=== PATIENT | female | born 1970 | race Caucasian/White ===

== ENCOUNTER 2017-02-19 15:10 | Outpatient (RCR) | payer BC ==
[2017-02-10] MEDS: IRON SUCROSE 200 MG/10 ML (VENOFER) VIAL IV SCH (17:28)
[2017-02-10 17:34] VITALS: BP 139/86
[2017-02-12] MEDS: IRON SUCROSE 200 MG/10 ML (VENOFER) VIAL IV SCH (15:07)
[2017-02-12 15:54] VITALS: BP 131/81
[2017-02-15] MEDS: diphenhydrAMINE 50 MG/ML INJ (BENADRYL) IV SCH (15:17)
[2017-02-15 15:19] VITALS: BP 126/74
[2017-02-15] MEDS: IRON SUCROSE 200 MG/10 ML (VENOFER) VIAL IV SCH (15:19)
[2017-02-17 15:15] VITALS: BP 129/82
[2017-02-17] MEDS: diphenhydrAMINE 50 MG/ML INJ (BENADRYL) IV SCH (15:28)
[2017-02-17] MEDS: IRON SUCROSE 200 MG/NS 100 ML (IVPB) IV SCH ×2 (15:45)
[~2017-02-19] VITALS: Ht 168.9 cm; Wt 152.4 kg
[~2017-02-19 15:10] MED LIST: IRON SUCROSE 200 MG/10 ML (VENOFER) VIAL IV ONE; NS (IVPB) 100 ML ONE; diphenhydrAMINE 50 MG/ML INJ (BENADRYL) IV SCH; diphenhydrAMINE 50 MG/ML INJ (BENADRYL) ONE
[2017-02-19] MEDS: diphenhydrAMINE 50 MG/ML INJ (BENADRYL) IV SCH (15:10)
[2017-02-19] MEDS: IRON SUCROSE 200 MG/NS 100 ML (IVPB) IV SCH ×2 (15:11)
[2017-02-19 15:15] VITALS: BP 146/91
[2017-02-19 15:49] VITALS: BP 146/91
== END 2017-05-11 | disposition home or self-care (01) ==
LOC: SDC 15:10
DX: D50.9 Iron deficiency anemia, unspecified (principal)
CPT/HCPCS: 96365; 96375

== ENCOUNTER → 2017-06-17 | Outpatient (CLI) | payer BC ==
--- NOTE | 2017-06-17 11:31 | Diagnostic Imaging Report ---
PROCEDURE: US Thyroid. TECHNIQUE: Multiple real-time grayscale images were obtained of the thyroid in various projections. INDICATION: Thyromegaly and abnormal thyroid labs. FINDINGS: The right lobe of the thyroid measures 5.1 x 1.6 x 1.3 cm and the left lobe measures 4.2 x 1.0 x 2.0 cm. There are two hypoechoic nodules within the right lobe. Largest is in the upper pole measuring 9 mm x 6 mm x 8 mm. The second nodule is 3 mm in size in the lower pole. Left lobe is unremarkable and shows homogeneous echotexture. IMPRESSION: Subcentimeter right lobe thyroid nodules. Followup ultrasound in six months could be performed to confirm stability. Dictated by: Dictated on workstation # [id number]
== END ==
LOC: RAD 10:35
PROVIDERS: ATTEND Nurse Practitioner Family
DX: E04.2 Nontoxic multinodular goiter (principal)
CPT/HCPCS: 76536

== ENCOUNTER → 2017-07-07 | Outpatient (CLI) | payer BC ==
[~2017-07-07] MED LIST changes: +IOHEXOL 350 MG/ML 100 ML (OMNIPAQUE 350) VIAL IV ONE; -IRON SUCROSE 200 MG/10 ML (VENOFER) VIAL IV ONE; -NS (IVPB) 100 ML ONE; +NS 250 ML (IVPB) BAG IV ONE; -diphenhydrAMINE 50 MG/ML INJ (BENADRYL) IV SCH; -diphenhydrAMINE 50 MG/ML INJ (BENADRYL) ONE
--- NOTE | 2017-07-07 18:32 | Diagnostic Imaging Report ---
PROCEDURE: CT neck soft tissue with contrast. TECHNIQUE: Multiple contiguous axial images were obtained through the neck after the administration of contrast. INDICATION: Neck mass. Fatigue. Not feeling well. Possible parathyroid. COMPARISON: Thyroid ultrasound from 06/17/2017. FINDINGS: There is streak artifact across the lower soft tissues of the neck due to body habitus. The visualized portions of the nasopharynx, oropharynx, and the hypopharynx are clear. There is mild prominence of the pharyngeal tonsils, without fluid collection or significant enlargement. There is no airway compromise. No pathologically enlarged cervical lymph nodes are seen. No masses or fluid collections are identified in the neck. The deep spaces of the neck are unremarkable. There is no abnormal enhancement. The parotid, and submandibular glands are unremarkable. The thyroid lobes are mildly prominent, but no discrete masses are seen. The visualized portions of the intracranial structures demonstrate no acute abnormalities. The paranasal sinuses and orbits are unremarkable. The visualized portion of the lung apices and mediastinum are unremarkable. Osseous structures demonstrate no acute abnormality, although there is loss of the cervical lordosis. IMPRESSION: 1. No masses or fluid collections seen in the soft tissues of the neck. Dictated by: Dictated on workstation # [id number]
== END ==
LOC: RAD 17:34
PROVIDERS: ATTEND Nurse Practitioner Family
DX: R22.1 Localized swelling, mass and lump, neck (principal); E21.3 Hyperparathyroidism, unspecified; R53.83 Other fatigue
CPT/HCPCS: 70491

== ENCOUNTER 2018-06-22 10:34 | Outpatient (CLI) | payer BC ==
[~2018-06-22] VITALS: Ht 168.9 cm; Wt 152.4 kg
[2018-06-22 10:45] VITALS: BP 116/77
[2018-06-22] MEDS: NS IV 1000 ML 1,000 ML IV SCH ×2 (10:59→12:01)
== END 2018-06-22 13:08 | disposition home or self-care (01) ==
LOC: SDC 10:34
PROVIDERS: ATTEND Nurse Practitioner Family
DX: E86.0 Dehydration (principal); R11.2 Nausea with vomiting, unspecified; R19.7 Diarrhea, unspecified
CPT/HCPCS: 96360; 96361

== ENCOUNTER 2019-04-24 10:34 | Outpatient (CLI) | payer BC ==
[~2019-04-24] VITALS: Ht 170 cm; Wt 152.7 kg
[2019-04-24] MEDS ORDERED: KETOROLAC 30 MG/ML VIAL ONE (10:59)
[2019-04-24] MEDS ORDERED: methylPREDNISolone 125 MG (Solu-MEDROL) VIAL ONE (10:59)
[2019-04-24 11:24] VITALS: BP 119/81
[2019-04-24 11:37] LABS: HEMOGLOBIN 11.9 G/DL (11.5-16.0); MEAN PLATELET VOLUME 10.7 FL (7.4-10.4); RED CELL DISTRIBUTION WIDTH 14.8 % (10.0-14.5); WHITE BLOOD COUNT 4.8 10^3/uL (4.3-11.0)
--- NOTE | 2019-04-24 11:38 | Diagnostic Imaging Report ---
INDICATION: Pneumonia. EXAMINATION: PA and lateral chest. FINDINGS: There is an alveolar nodular infiltrate throughout most of the left lung. The right lung is clear. There are no effusions. IMPRESSION: Left lung pneumonia. Dictated by: Dictated on workstation # [id number]
--- NOTE | 2019-04-24 11:43 | NUR ---
FIFTH CALL MADE TO BRIANNE TANG'S OFFICE. THE NURSE SAID SHE WILL TALK TO THE PROVIDER AND GET ANOTHER ANTIBIOTIC ORDERED FOR THE PATIET
[2019-04-24 11:48] LABS: ALANINE AMINOTRANSFERASE 31 U/L (0-55); ALBUMIN 3.2 GM/DL (3.2-4.5); ALKALINE PHOSPHATASE 62 U/L (40-136); BILIRUBIN,TOTAL 0.2 MG/DL (0.1-1.0); BUN/CREATININE RATIO 10; CALCIUM 7.7 MG/DL (8.5-10.1); CARBON DIOXIDE 20 MMOL/L (21-32); CHLORIDE 107 MMOL/L (98-107); CREATININE SERUM 0.78 MG/DL (0.60-1.30); GFR ESTIMATED > 60; GLUCOSE 188 MG/DL (70-105); POTASSIUM 3.6 MMOL/L (3.6-5.0); SODIUM 137 MMOL/L (135-145); TOTAL PROTEIN 6.3 GM/DL (6.4-8.2)
[2019-04-24] MEDS ORDERED: LACTATED RINGERS 1,000 ML IV ONE (12:06)
[2019-04-24] MEDS ORDERED: MEROPENEM 1000 MG (MERREM) VIAL IV ONE ×2 (12:06→12:07)
[2019-04-24] MEDS ORDERED: WATER (STERILE) FOR INJECTION 20 ML ONE (12:07)
[2019-04-24] MEDS ORDERED: LACTATED RINGERS 1,000 ML IV SCH (12:15)
[2019-04-24] MEDS ORDERED: MEROPENEM 1,000 MG/SWFI 20 ML IV PUSH IV ONE ×2 (12:15)
[2019-04-25] MEDS ORDERED: FLUC150T2 PO (15:26)
[2019-04-25] MEDS ORDERED: LIRA3PEN SC (15:26)
[2019-04-25] MEDS ORDERED: LACT1CAP8 PO (15:26)
[2019-04-25] MEDS ORDERED: [UNRECOGNIZED DRUG - OTHER] IM (15:26)
[2019-04-25] MEDS ORDERED: ALBU2.5V4 NEB (15:34)
[2019-04-25] MEDS ORDERED: DEXT10TA24 PO (15:34)
[2019-04-25] MEDS ORDERED: PROG100C11 PO (15:34)
[2019-04-25] MEDS ORDERED: PROM5SYR PO (15:34)
[2019-04-25] MEDS ORDERED: CLAR-19 PO (15:49)
[2019-04-25] MEDS ORDERED: BENZ100C18 PO (15:49)
[2019-04-25] MEDS ORDERED: METH4TAB PO (15:49)
== END 2019-04-24 13:37 | disposition home or self-care (01) ==
LOC: SDC 10:34
PROVIDERS: ATTEND Nurse Practitioner Family
DX: J18.9 Pneumonia, unspecified organism (principal); E86.0 Dehydration
CPT/HCPCS: 36415; 71046; 80053; 85027; 85652; 96361; 96365; 96374; 96375

== ENCOUNTER 2019-04-25 09:26 | Inpatient (IN) | payer BC ==
[~2019-04-25] VITALS: Ht 170.2 cm; Wt 150.0 kg
[2019-04-25 12:55] VITALS: BP 139/81
--- NOTE | 2019-04-25 13:00 | NUR ---
BO CARBAJAL admitted to room , with an admitting diagnosis of pneumonia, on from Direct admission via w/c, accompanied by pcct.BO CARBAJAL introduced to surroundings, call light, bed controls, phone, TV, temperature control, lights, meal times, smoking policy, visitor policy, side rail policy, bathrooms and showers. Patient Rights given to patient in the handbook. BO CARBAJAL verbalizes understanding that [facility] is not responsible for the loss or damage to any personal effects or valuables that are kept in the patients posession during their hospitalization. BO CARBAJAL verbalizes understanding of Interdisciplinary Patient Education. Patient and/or family were informed about the Rapid Response Team and its purpose.
[2019-04-25] MEDS ORDERED: ONDANSETRON 4 MG (ZOFRAN) ORAL DISSOLVE TAB PO PRN (13:15)
[2019-04-25] MEDS ORDERED: MELATONIN 3 MG TABLET PO PRN (13:15)
[2019-04-25] MEDS ORDERED: diphenhydrAMINE 50 MG/ML INJ (BENADRYL) IVP PRN ×2 (13:15→22:45)
[2019-04-25] MEDS ORDERED: ONDANSETRON 4 MG/2 ML (SDV) Z0FRAN IV PRN (13:15)
[2019-04-25] MEDS ORDERED: BISACODYL 10 MG SUPP (DULCOLAX) PR PRN (13:15)
[2019-04-25] MEDS ORDERED: ACETAMINOPHEN 325 MG TABLET PO PRN (13:15)
[2019-04-25] MEDS ORDERED: POLYETHYLENE GLYCOL 17 GM (MIRALAX) PACK PO PRN (13:15)
[2019-04-25] MEDS ORDERED: ANTACID SUSP 30 ML UDC (MYLANTA) PO PRN (13:15)
--- NOTE | 2019-04-25 14:14 | History & Physical-Hospitalist ---
History of Present Illness HPI/Chief Complaint Tiffany Lowe is a 48-year-old female who presented as a direct admission from Dr. Sloan's clinic with pneumonia. She reports that she has been having difficulty breathing and cough. She reports fevers. She was given 1 dose of IV meropenem and Solu-Medrol as an outpatient. Her symptoms fail to improve and thus she was admitted. She denies chest pain. She denies abdominal pain, nausea, vomiting, and diarrhea. She denies dysuria. She reports that she was told she had a Keflex allergy but she is unsure if that is accurate. She said she is taking a couple other medications at that time. She said she developed a rash. She is willing to try another cephalosporin. Source: patient Exam Limitations: no limitations Date Seen 04/25/19 Time Seen by a Provider: 13:00 Attending Physician Leny Pavon MD PCP Prateek Sloan DO Referring Physician Date of Admission Apr 25, 2019 at 12:55 Home Medications & Allergies Home Medications Reviewed patient Home Medication Reconciliation performed by pharmacy medication reconciliations reliability technicians and/or nursing. Patients Allergies have been reviewed. Allergies Allergies Coded Allergies Cephalosporins (Verified Allergy, Intermediate, HIVES, 04/25/19) Past [id number]-Cqjhhd-Lvxzwu Hx Past Med/Social Hx: Reviewed Nursing Past Med/Soc Hx Patient Social History Alcohol Use: Occasionally Uses Recreational Drug Use: No Physical Abuse Screen: No Sexual Abuse: No Contact w/other who traveled: No Recent Hopitalizations: No Recent Infectious Disease Expo: No Immunizations Up To Date Tetanus Booster (TDap): Unknown Seasonal Allergies Seasonal Allergies: No Past Medical History Surgeries: Gallbladder Currently Using CPAP: No Currently Using BIPAP: No Reproductive: No Adverse Reaction to Blood Alfredo: Yes (WITH SURGERY) Family History Patient reports no known family medical history. Review of Systems Constitutional: fever, malaise Respiratory: cough, short of breath Cardiovascular: no symptoms reported Gastrointestinal: no symptoms reported Genitourinary: no symptoms reported Musculoskeletal: no symptoms reported Skin: no symptoms reported Psychiatric/Neurological: No Symptoms Reported Physical Exam Physical Exam Vital Signs Capillary Refill : Height, Weight, BMI Height: 5'6.50" Weight: 336lbs. 0.0oz. 152.403527mb; 53.4 BMI Method: General Appearance: No Apparent Distress, Obese HEENT: PERRL/EOMI, Pharynx Normal Neck: Normal Inspection, Supple Respiratory: Lungs Clear, Normal Breath Sounds, No Accessory Muscle Use, No Respiratory Distress; No Crackles, No Wheezing Cardiovascular: Regular Rate, Rhythm, No Edema, No Murmur Gastrointestinal: Normal Bowel Sounds, Non Tender, Soft Extremity: Normal Inspection, Non Tender, No Pedal Edema Neurologic/Psychiatric: Alert, Oriented x3, No Motor/Sensory Deficits, Normal Mood/Affect Skin: Normal Color, Warm/Dry Lymphatic: No Adenopathy Results Results/Procedures Labs Patient resulted labs reviewed. Imaging: Reviewed Imaging Report Assessment/Plan Admission Diagnosis Community acquired pneumonia Admission Status: Inpatient Order (span 2 midnights) Reason for Inpatient Admission: Pneumonia requiring IV antibiotics Assessment and Plan Community acquired pneumonia Chest x-ray consistent with left lobe pneumonia Obtain labs on admission Begin Rocephin and azithromycin MAT protocol History of gastric bypass Morbid obesity Clinically significant, no acute management needs DVT prophylaxis: Lovenox Diagnosis/Problems Diagnosis/Problems (1) Community acquired pneumonia Status: Acute Qualifiers: Laterality: left Clinical Quality Measures DVT/VTE Risk/Contraindication: Risk Factor Score Per Nursin RFS Level Per Nursing on Admit: 3=High LENY PAVON MD Apr 25, 2019 14:14
[2019-04-25] MEDS ORDERED: AZITHROMYCIN INJECTION 500 MG in NS (IVPB) 250 ML IV NR (14:15)
[2019-04-25] MEDS ORDERED: cefTRIAXone FOR IV USE 2,000 MG in WATER (STERILE) FOR INJECTION 20 ML IV SCH (14:15)
[2019-04-25 14:37] LABS: BASOPHILS % (AUTO) 0 % (0-10); EOSINOPHILS % (AUTO) 0 % (0-10); HEMATOCRIT 40 % (35-52); HEMOGLOBIN 12.7 G/DL (11.5-16.0); LYMPHOCYTES # (AUTO) 1.7 X 10^3 (1.0-4.0); LYMPHOCYTES % (AUTO) 21 % (12-44); MEAN CORPUSCULAR HEMOGLOBIN 26 PG (25-34); MEAN CORPUSCULAR HGB CONC 32 G/DL (32-36); MEAN CORPUSCULAR VOLUME 82 FL (80-99); MEAN PLATELET VOLUME 9.9 FL (7.4-10.4); MONOCYTES # (AUTO) 0.5 X 10^3 (0.0-1.0); MONOCYTES % (AUTO) 6 % (0-12); NEUTROPHILS # (AUTO) 6.1 X 10^3 (1.8-7.8); NEUTROPHILS % (AUTO) 73 % (42-75); PLATELET COUNT 321 10^3/uL (130-400); RED CELL DISTRIBUTION WIDTH 14.6 % (10.0-14.5); WHITE BLOOD COUNT 8.3 10^3/uL (4.3-11.0)
[2019-04-25] MEDS: LACTATED RINGERS 1,000 ML IV SCH (14:42)
[2019-04-25 14:54] LABS: BUN/CREATININE RATIO 17; CALCIUM 8.3 MG/DL (8.5-10.1); CARBON DIOXIDE 21 MMOL/L (21-32); CHLORIDE 109 MMOL/L (98-107); CREATININE SERUM 0.69 MG/DL (0.60-1.30); GFR ESTIMATED > 60; GLUCOSE 91 MG/DL (70-105); POTASSIUM 3.8 MMOL/L (3.6-5.0); SODIUM 140 MMOL/L (135-145)
[2019-04-25 15:01] VITALS: BP 139/81
[2019-04-25] MEDS ORDERED: LIRA3PEN SC (15:26)
[2019-04-25] MEDS ORDERED: FLUC150T2 PO (15:26)
[2019-04-25] MEDS ORDERED: [UNRECOGNIZED DRUG - OTHER] IM (15:26)
[2019-04-25] MEDS ORDERED: LACT1CAP8 PO (15:26)
[2019-04-25] MEDS ORDERED: ALBU2.5V4 NEB (15:34)
[2019-04-25] MEDS ORDERED: DEXT10TA24 PO (15:34)
[2019-04-25] MEDS ORDERED: PROG100C11 PO (15:34)
[2019-04-25] MEDS ORDERED: PROM5SYR PO (15:34)
[2019-04-25] MEDS ORDERED: BENZ100C18 PO (15:49)
[2019-04-25] MEDS ORDERED: METH4TAB PO (15:49)
[2019-04-25] MEDS ORDERED: CLAR-19 PO (15:49)
--- NOTE | 2019-04-25 15:50 | NUR ---
SPOKE WITH THE PATIENT ABOUT HER MEDICATIONS. WE WENT OVER THE EXT MED HX. IN ADDITION TO WHAT IS SHOWN ON THE EXT MED HX BEAR DISPENSED THE FOLLOWING MEDICATIONS YESTERDAY: ALBUTEROL 0.083% Q4H CLARITHROMYCIN 500MG BID #20 BENZONATATE 100MG Q8H PRN #30 MEDROL DOSEPAK SHE STATES SHE HAS NOT BEEN TAKING A LOT OF HER MEDICATIONS RECENTLY DUE TO NOT FEELING WELL. SHE STATES SHE IS NO LONGER TAKING THE METFORMIN, SHE IS TRYING TO GET BUT HAS STOPPED THAT MEDICATION. SHE STATES THE ADDERALL WAS TO HELP HER WITH THE EXTRA SKIN SINCE HAVING LOST WEIGHT BUT SHE WAS ONLY TAKING IT ONCE DAILY NOT TWICE DAILY LIKE PRESCRIBED. SHE HAS NOT BEEN TAKING THIS RECENTLY DUE TO FEELING UNWELL.
[2019-04-25 16:00] VITALS: BP 111/77
[2019-04-25] MEDS ORDERED: RT-ALBUTEROL/IPRATROPIUM 3 ML (DUONEB) VIAL INH PRN (16:00)
[2019-04-25] MEDS: inSUlin ASPART (NovoLOG) 1 UNIT/0.01 ML (CHARGE PER UNIT) SC SCH ×2 (16:34→21:31)
[2019-04-25] MEDS: RT-ALBUTEROL/IPRATROPIUM 3 ML (DUONEB) VIAL INH SCH (18:36)
[2019-04-25 20:01] VITALS: BP 116/80
[2019-04-25] MEDS: SENNOSIDES 8.6 MG (SENOKOT) TAB PO SCH (21:31)
[2019-04-25] MEDS: DOCUSATE SODIUM 100 MG (COLACE) CAP PO SCH (21:31)
[2019-04-25] MEDS ORDERED: methylPREDNISolone 40 MG/ML (Solu-MEDROL) VIAL ONE (22:48)
[2019-04-25] MEDS: methylPREDNISolone 125 MG (Solu-MEDROL) VIAL IVP SCH (23:03)
[2019-04-25 23:33] VITALS: BP 100/63
--- NOTE | 2019-04-26 | NUR ---
2229 - [facility] notified this RN that patient is feeling itchy and red all over her body 2231 - Assessed patient and noted redness and swelling on hands and arms as well as restlessness on legs, possible allergic reaction to some medication 2233 - Notified Dr. Dave of patients condition, received the following orders: - Hold Azithromycin and Rocephin for now and notify pharmacy in the morning. - Solumedrol 60mg IV q6hrs - Benadryl 50mg IV or PO q3hrs PRN 2239 - Gave Benadryl 50mg IV 0 - Gave 1st dose of Solumedrol 2329 - Reassessed patient. Patient has no more itching or swelling and is feeling better.
[2019-04-26] MEDS: LACTATED RINGERS 1,000 ML IV SCH (02:28)
[2019-04-26] MEDS: RT-ALBUTEROL/IPRATROPIUM 3 ML (DUONEB) VIAL INH SCH ×3 (02:29→10:38)
[2019-04-26 04:30] VITALS: BP 128/74
[2019-04-26 05:16] LABS: BASOPHILS % (AUTO) 0 % (0-10); EOSINOPHILS % (AUTO) 0 % (0-10); HEMATOCRIT 41 % (35-52); HEMOGLOBIN 12.7 G/DL (11.5-16.0); LYMPHOCYTES # (AUTO) 0.9 X 10^3 (1.0-4.0); LYMPHOCYTES % (AUTO) 18 % (12-44); MEAN CORPUSCULAR HEMOGLOBIN 26 PG (25-34); MEAN CORPUSCULAR HGB CONC 31 G/DL (32-36); MEAN CORPUSCULAR VOLUME 82 FL (80-99); MEAN PLATELET VOLUME 9.5 FL (7.4-10.4); MONOCYTES # (AUTO) 0.1 X 10^3 (0.0-1.0); MONOCYTES % (AUTO) 2 % (0-12); NEUTROPHILS % (AUTO) 80 % (42-75); PLATELET COUNT 353 10^3/uL (130-400); RED CELL DISTRIBUTION WIDTH 14.7 % (10.0-14.5)
[2019-04-26 05:37] LABS: BUN/CREATININE RATIO 18; CALCIUM 8.9 MG/DL (8.5-10.1); CARBON DIOXIDE 21 MMOL/L (21-32); CHLORIDE 107 MMOL/L (98-107); CREATININE SERUM 0.78 MG/DL (0.60-1.30); GFR ESTIMATED > 60; GLUCOSE 154 MG/DL (70-105); POTASSIUM 5.3 MMOL/L (3.6-5.0); SODIUM 140 MMOL/L (135-145)
[2019-04-26] MEDS: methylPREDNISolone 125 MG (Solu-MEDROL) VIAL IVP SCH (06:08)
[2019-04-26] MEDS: inSUlin ASPART (NovoLOG) 1 UNIT/0.01 ML (CHARGE PER UNIT) SC SCH ×2 (06:12→10:45)
[2019-04-26] MEDS: DOCUSATE SODIUM 100 MG (COLACE) CAP PO SCH (08:08)
[2019-04-26] MEDS: SENNOSIDES 8.6 MG (SENOKOT) TAB PO SCH (08:09)
[2019-04-26 08:51] VITALS: BP 121/75
[2019-04-26] MEDS ORDERED: AZITHROMYCIN 250 MG TAB (ZITHROMAX) PO SCH (09:00)
[2019-04-26] MEDS ORDERED: PHARMACY TO DOSE SQ SCH (09:00)
--- NOTE | 2019-04-26 09:33 | Diagnostic Imaging Report ---
INDICATION: Cough and pneumonia. TIME OF EXAM: 9:17 AM Correlation is made with prior chest from 04/24/2019. FINDINGS: Heart size is stable. Airspace infiltrates throughout the left lung shows significant improvement and partial clearing. There is some mild residual infiltrate. There appears to be some minimal right perihilar infiltrate. No effusion or pneumothorax is seen. IMPRESSION: Partial clearing of bilateral pulmonary infiltrates, particularly on the left when compared to examination 2 days earlier. Dictated by: Dictated on workstation # [id number]
[2019-04-26] MEDS ORDERED: DOXY100C2 PO (11:03)
[2019-04-26 11:35] VITALS: BP 121/75
[2019-04-26] MEDS ORDERED: ENOXAPARIN 60 MG/0.6 ML (LOVENOX) SYR SC SCH (21:00)
--- NOTE | 2019-04-28 15:19 | Discharge Summary ---
Discharge Summary Hospital Course Was the Problem List Reviewed?: Yes Problems/Dx: (1) Community acquired pneumonia Status: Acute Qualifiers: Hospital Course Date of Admission: Apr 25, 2019 at 12:55 Admission Diagnosis : community acquired pneumonia Family Physician/Provider: Date of Discharge: 04/28/19 Discharge Diagnosis: community acquired pneumonia Hospital Course: Tiffany Lowe is a 48-year-old female who presented from Dr. Sloan's clinic with shortness of breath and was admitted with pneumonia. She had received a dose of IV antibiotics as an outpatient and failed to improve. Her chest x-ray done prior to admission revealed left lower lobe pneumonia. Upon admission she was started IV Rocephin and azithromycin and was transitioned to oral doxycycline on discharge. She was not requiring any oxygen at the time of discharge. She should follow-up with Dr. Sloan's clinic and about a week. Labs and Pending Lab Test: Microbiology 04/25/19 Blood Culture - Preliminary, Resulted No growth Home Meds Active Doxycycline Hyclate 100 Mg Capsule 100 Mg PO BID 7 Days Reported Tessalon Perles (Benzonatate) 100 Mg Capsule 100 Mg PO Q8H PRN Progesterone (Progesterone,Micronized) 100 Mg Capsule 100 Mg PO UD TAKES DAILY DAYS 10 THROUGH 28 OF CYCLE Amphetamine Salts 10 mg Tablet (Dextroamphetamine/Amphetamine) 10 Mg Tablet 10 Mg PO DAILY PRN Albuterol Sulfate 2.5 Mg/3 Ml Vial.neb 2.5 Mg NEB Q4H PRN Prometh-Codein 6.25-10 mg/5 ml (Promethazine HCl/Codeine) 5 Ml Syrup 5 Ml PO Q4H PRN Saxenda (Liraglutide) 3 Mg/0.5 Ml Pen.injctr 0.6 Mg SC HS PRN Acidophilus (Lactobacillus Acidophilus) 1 Each Capsule 1 Cap PO DAILY PRN Fluconazole 150 Mg Tablet 150 Mg PO Q72H PRN [Methocobalamin] 1 Ml IM DAILY Assessment/Pt Instructions take medications as prescribed. Follow up with Dr. Sloan in about a week. Complete her course of antibiotics even appear feeling better. Return with worsening fevers, shortness of breath, or if you feel like you're getting worse. Discharge Planning: <30 minutes discharge planning Discharge Instructions Discharge Diet: No Restrictions Activity as Tolerated: Yes Discharge Physical Examination Vital Signs Vital Signs Date Time Temp Pulse Resp B/P (MAP) Pulse Ox O2 Delivery O2 Flow Rate FiO2 04/26/19 11:35 35.1 65 18 121/75 94 Room Air General Appearance: No Apparent Distress, WD/WN, Obese HEENT: PERRL/EOMI, Pharynx Normal Respiratory: Lungs Clear, Normal Breath Sounds, No Respiratory Distress Cardiovascular: Regular Rate, Rhythm, No Edema, No Murmur Gastrointestinal: Normal Bowel Sounds, Non Tender, Soft Extremity: Normal Inspection, Non Tender, No Pedal Edema Skin: Normal Color, Warm/Dry Neurologic/Psychiatric: Alert, Oriented x3, No Motor/Sensory Deficits, Normal Mood/Affect Allergies: Coded Allergies: Cephalosporins (Verified Allergy, Intermediate, HIVES, 04/25/19) Copy Copies To 1: ANABEL SLOAN DO Discharge Summary Date of Admission Apr 25, 2019 at 12:55 Date of Discharge Apr 26, 2019 at 11:40 Discharge Date: Apr 26, 2019 Discharge Time: 11:40 Admission Diagnosis Community acquired pneumonia Discharge Diagnosis Community acquired pneumonia (1) Community acquired pneumonia Status: Acute Qualifiers: Clinical Quality Measures DVT/VTE Risk/Contraindication: Risk Factor Score Per Nursin RFS Level Per Nursing on Admit: 3=High LENY PAVON MD Apr 28, 2019 15:19
== END 2019-04-26 11:40 | disposition home or self-care (01) | DRG 194 ==
LOC: 4TH 12:55
PROVIDERS: ADMIT Internal Medicine; ATTEND Internal Medicine
DX: J18.9 Pneumonia, unspecified organism (principal); E66.01 Morbid (severe) obesity due to excess calories; Z68.43 Body mass index [BMI] 50.0-59.9, adult; Z98.84 Bariatric surgery status
CPT/HCPCS: 36415; 71046; 80048; 82962; 83880; 84145; 85025; 87040; 94640; 94664; 94760

== ENCOUNTER → 2019-08-16 | Outpatient (CLI) | payer BC ==
[~2019-08-16] MED LIST changes: +ALBU2.5V4 NEB; +BENZ100C18 PO; +CLAR-31 PO; +DEXT10TA24 PO; +DOXY100C2 PO; +FLUC150T2 PO; -IOHEXOL 350 MG/ML 100 ML (OMNIPAQUE 350) VIAL IV ONE; +LACT1CAP8 PO; +LIRA3PEN SC; +METH4TAB PO; -NS 250 ML (IVPB) BAG IV ONE; +PROG100C11 PO; +PROM5SYR PO; +[UNRECOGNIZED DRUG - OTHER] IM
--- NOTE | 2019-08-16 12:56 | Diagnostic Imaging Report ---
INDICATION: Pneumonia, difficulty breathing. FINDINGS: The lungs are clear on followup. No infiltrate, effusion, or pneumothorax. IMPRESSION: No acute appearing abnormality. Dictated by: Dictated on workstation # [id number]
== END ==
LOC: RAD 12:26
PROVIDERS: ATTEND Nurse Practitioner Family
DX: R09.89 Other specified symptoms and signs involving the circulatory and respiratory systems (principal); R00.2 Palpitations; R06.09 Other forms of dyspnea; Z87.01 Personal history of pneumonia (recurrent)
CPT/HCPCS: 71046

== ENCOUNTER 2019-08-23 06:02 | Emergency (ER) | payer BC ==
[~2019-08-23] VITALS: Ht 167 cm; Wt 150.0 kg
--- OUTSIDE RECORDS SUMMARY | 2019-08-23 06:10 | XMS REPORT | Continuity of Care Document ---
Author Organization Unknown Address Unknown Phone Unavailable Allergies Active Description Code Type Severity Reaction Onset Reported/Identified Relationship to Patient Clinical Status Yes Cephalosporins [id number] Dr ceja Allergy Moderate HIVES 04/25/2019 Medications There is no data. Problems Date Dx Coded Attending Type Code Diagnosis Diagnosed By 02/11/2017 JAY UMANZOR MD D Ot D50.9 IRON DEFICIENCY ANEMIA, UNSPECIFIED 02/12/2017 NOÉ MEDINA, JAY D Ot D50.9 IRON DEFICIENCY ANEMIA, UNSPECIFIED 02/15/2017 JAY UMANZOR MD D Ot D50.9 IRON DEFICIENCY ANEMIA, UNSPECIFIED 02/15/2017 JAY UMANZOR MD D Ot D50.9 IRON DEFICIENCY ANEMIA, UNSPECIFIED 02/17/2017 JAY UMANZOR MD D Ot D50.9 IRON DEFICIENCY ANEMIA, UNSPECIFIED 02/19/2017 JAY UMANZOR MD D Ot D50.9 IRON DEFICIENCY ANEMIA, UNSPECIFIED 02/19/2017 NOÉ MEDINA, JAY D Ot D50.9 IRON DEFICIENCY ANEMIA, UNSPECIFIED 03/12/2017 NOÉ MEDINA, JAY D Ot D50.9 IRON DEFICIENCY ANEMIA, UNSPECIFIED 04/01/2017 NOÉ MEDINA JAY D Ot D50.9 IRON DEFICIENCY ANEMIA, UNSPECIFIED 05/11/2017 NOÉ MEDINA JAY D Ot D50.9 IRON DEFICIENCY ANEMIA, UNSPECIFIED 05/12/2017 NOÉ MEDINA JAY D Ot D50.9 IRON DEFICIENCY ANEMIA, UNSPECIFIED 06/15/2017 NOÉ MEDINA JAY D Ot D50.9 IRON DEFICIENCY ANEMIA, UNSPECIFIED 06/17/2017 JAY UMANZOR MD D Ot D50.9 IRON DEFICIENCY ANEMIA, UNSPECIFIED 06/21/2017 BRIANNE TANG FRONT DESK OFFICER Ot E04.2 NONTOXIC MULTINODULAR GOITER 07/02/2017 BRIANNE TANG FR[employer] DESK OFFICER Ot E04.2 NONTOXIC MULTINODULAR GOITER 07/08/2017 TANG, BRIANNE L FR[employer] DESK OFFICER Ot E21.3 HYPERPARATHYROIDISM, UNSPECIFIED 07/08/2017 TANG, BRIANNE L [employer] DESK OFFICER Ot R22.1 LOCALIZED SWELLING, MASS AND LUMP, NECK 07/08/2017 TANG, BRIANNE L FR[employer] DESK OFFICER Ot R53.83 OTHER FATIGUE 07/13/2017 TANG, BRIANNE L FR[employer] DESK OFFICER Ot E21.3 HYPERPARATHYROIDISM, UNSPECIFIED 07/13/2017 TANG, BRIANNE L FR[employer] DESK OFFICER Ot R22.1 LOCALIZED SWELLING, MASS AND LUMP, NECK 07/13/2017 TANG, BRIANNE L FR[employer] DESK OFFICER Ot R53.83 OTHER FATIGUE 06/22/2018 NOÉ MEDINA, JAY Batista Ot D50.9 IRON DEFICIENCY ANEMIA, UNSPECIFIED 06/22/2018 TANG, BRIANNE L FR[employer] DESK OFFICER Ot E04.2 NONTOXIC MULTINODULAR GOITER 06/22/2018 TANG, BRIANNE L FR[employer] DESK OFFICER Ot E21.3 HYPERPARATHYROIDISM, UNSPECIFIED 06/22/2018 TANG, BRIANNE L FRONT DESK OFFICER Ot R22.1 LOCALIZED SWELLING, MASS AND LUMP, NECK 06/22/2018 TANG, BRIANNE L FR[employer] DESK OFFICER Ot R53.83 OTHER FATIGUE 06/22/2018 TINO LAU TAX SENIOR ASSOCIATE Ot E86.0 DEHYDRATION 06/22/2018 TINO LAU TAX SENIOR ASSOCIATE Ot R11.2 NAUSEA WITH VOMITING, UNSPECIFIED 06/22/2018 TINO LAU TAX SENIOR ASSOCIATE Ot R19.7 DIARRHEA, UNSPECIFIED 06/23/2018 TINO LAU TAX SENIOR ASSOCIATE Ot E86.0 DEHYDRATION 06/23/2018 TINO LAU TAX SENIOR ASSOCIATE Ot R11.2 NAUSEA WITH VOMITING, UNSPECIFIED 06/23/2018 TINO LAU TAX SENIOR ASSOCIATE Ot R19.7 DIARRHEA, UNSPECIFIED 04/24/2019 NOÉ MEDINA, JAY Batista Ot D50.9 IRON DEFICIENCY ANEMIA, UNSPECIFIED 04/24/2019 TANG, BRIANNE L FR[employer] DESK OFFICER Ot E04.2 NONTOXIC MULTINODULAR GOITER 04/24/2019 TANG, BRIANNE L FR[employer] DESK OFFICER Ot E21.3 HYPERPARATHYROIDISM, UNSPECIFIED 04/24/2019 TANG, BRIANNE L FR[employer] DESK OFFICER Ot R22.1 LOCALIZED SWELLING, MASS AND LUMP, NECK 04/24/2019 TANG, BRIANNE L FR[employer] DESK OFFICER Ot R53.83 OTHER FATIGUE 04/24/2019 BRIANNE TANG L FR[employer] DESK OFFICER Ot E86.0 DEHYDRATION 04/24/2019 BRIANNE TANG FR[employer] DESK OFFICER Ot J18.9 PNEUMONIA, UNSPECIFIED ORGANISM 04/25/2019 NOÉ MEDINA, JAY Batista Ot D50.9 IRON DEFICIENCY ANEMIA, UNSPECIFIED 04/26/2019 BRIANNE TANG L FR[employer] DESK OFFICER Ot E86.0 DEHYDRATION 04/26/2019 BRIANNE TANG FR[employer] DESK OFFICER Ot J18.9 PNEUMONIA, UNSPECIFIED ORGANISM 04/26/2019 LENY PAVON MD Ot E66. 01 MORBID (SEVERE) OBESITY DUE TO EXCESS CA 04/26/2019 LENY PAVON MD Ot J18. 9 PNEUMONIA, UNSPECIFIED ORGANISM 04/26/2019 LENY PAVON MD Ot Z68. 43 BODY MASS INDEX (BMI) 50.0-59.9, ADULT 04/26/2019 LENY PAVON MD Ot Z98. 84 BARIATRIC SURGERY STATUS 04/26/2019 LENY PAVON MD Ot E66. 01 MORBID (SEVERE) OBESITY DUE TO EXCESS CA 04/26/2019 LENY PAVON MD, Ot J18. 9 PNEUMONIA, UNSPECIFIED ORGANISM 04/26/2019 LENY PAVON MD Ot Z68. 43 BODY MASS INDEX (BMI) 50.0-59.9, ADULT 04/26/2019 LENY PAVON MD Ot Z98. 84 BARIATRIC SURGERY STATUS 04/26/2019 LENY PAVON MD Ot E66. 01 MORBID (SEVERE) OBESITY DUE TO EXCESS CA 04/26/2019 LENY PAVON MD Ot J18. 9 PNEUMONIA, UNSPECIFIED ORGANISM 04/26/2019 LENY PAVON MD, Ot Z68. 43 BODY MASS INDEX (BMI) 50.0-59.9, ADULT 04/26/2019 LENY PAVON MD Ot Z98. 84 BARIATRIC SURGERY STATUS 08/17/2019 BRIANNE TANG FR[employer] DESK OFFICER Ot R00.2 PALPITATIONS 08/17/2019 BRIANNE TANG FR[employer] DESK OFFICER Ot R06.09 OTHER FORMS OF DYSPNEA 08/17/2019 BRIANNE TANG FR[employer] DESK OFFICER Ot R09.89 OTH SYMPTOMS AND SIGNS INVOLVING THE CIR 08/17/2019 BRIANNE TANG FR[employer] DESK OFFICER Ot Z87.01 PERSONAL HISTORY OF PNEUMONIA (RECURRENT Procedures There is no data. Results Test Result Range Automated blood complete blood count (he mogram) panel - 04/24/19 10:55 Blood leukocytes automated count (number/volume) 4.8 10*3/uL 4.3-11.0 Blood erythrocytes automated count (number/volume) 4.50 10*6/uL 4.35-5.85 Venous blood hemoglobin measurement (mass/volume) 11.9 g/dL 11.5-16.0 Blood hematocrit (volume fraction) 37 % 35-52 Automated erythrocyte mean corpuscular volume 83 [ foz_us] 80-99 Automated erythrocyte mean corpuscular h emoglobin (mass per erythrocyte) 26 pg 25-34 Automated erythrocyte mean corpuscular h emoglobin concentration measurement (mass/volume) 32 g/dL 32-36 Automated erythrocyte distribution width ratio 14. 8 % 10.0- 14.5 Automated blood platelet count (count/volume) 310 10*3/uL 130-400 Automated blood platelet mean volume measurement 10.7 [foz_us] 7.4-10.4 Comprehensive metabolic panel - 04/24/19 10:55 Serum or plasma sodium measurement (moles/volume) 137 mmol/L 135-145 Serum or plasma potassium measurement (moles/volume) 3.6 mmol/L 3.6-5.0 Serum or plasma chloride measurement (moles/volume) 107 mmol/L 98-107 Carbon dioxide 20 mmol/L 21-32 Serum or plasma anion gap determination (moles/volume) 10 mmol/L 5-14 Serum or plasma urea nitrogen measurement (mass/volume ) 8 mg/dL 7-18 Serum or plasma creatinine measurement (mass/volume) 0.78 mg/dL 0.60-1.30 Serum or plasma urea nitrogen/creatinine mass ratio 10 NRG Serum or plasma creatinine measurement w ith calculation of estimated glomerular filtration rate > NRG Serum or plasma glucose measurement (mass/volume) 188 mg/dL 70-105 Serum or plasma calcium measurement (mass/volume) 7.7 mg/dL 8.5-10.1 Serum or plasma total bilirubin measurement (mass/volu me) 0.2 mg/dL 0.1-1.0 Serum or plasma alkaline phosphatase clive surement (enzymatic activity/volume) 62 U/L 40-136 Serum or plasma aspartate aminotransfera se measurement (enzymatic activity/volume) 33 U/L 5-34 Serum or plasma alanine aminotransferase measurement (enzymatic activity/volume) 31 U/L 0-55 Serum or plasma protein measurement (mass/volume) 6.3 g/dL 6.4-8.2 Serum or plasma albumin measurement (mass/volume) 3.2 g/dL 3.2-4.5 CALCIUM CORRECTED 8.3 mg/dL 8.5-10.1 Erythrocyte sedimentation rate by feliz gren method - 04/24/19 10:55 Erythrocyte sedimentation rate by westergren method 27 mm 0- 20 Complete blood count (CBC) with automate d white blood cell (WBC) differential - 04/25/19 14:20 Blood leukocytes automated count (number/volume) 8.3 10*3/uL 4.3-11.0 Blood erythrocytes automated count (number/volume) 4.91 10*6/uL 4.35-5.85 Venous blood hemoglobin measurement (mass/volume) 12.7 g/dL 11.5-16.0 Blood hematocrit (volume fraction) 40 % 35-52 Automated erythrocyte mean corpuscular volume 82 [ foz_us] 80-99 Automated erythrocyte mean corpuscular h emoglobin (mass per erythrocyte) 26 pg 25-34 Automated erythrocyte mean corpuscular h emoglobin concentration measurement (mass/volume) 32 g/dL 32-36 Automated erythrocyte distribution width ratio 14. 6 % 10.0- 14.5 Automated blood platelet count (count/volume) 321 10*3/uL 130-400 Automated blood platelet mean volume measurement 9.9 [foz_us] 7.4-10.4 Automated blood neutrophils/100 leukocytes 73 % 42-75 Automated blood lymphocytes/100 leukocytes 21 % 12-44 Blood monocytes/100 leukocytes 6 % 0-12 Automated blood eosinophils/100 leukocytes 0 % 0-10 Automated blood basophils/100 leukocytes 0 % 0-10 Blood neutrophils automated count (number/volume) 6.1 10*3 1.8-7.8 Blood lymphocytes automated count (number/volume) 1.7 10*3 1.0-4.0 Blood monocytes automated count (number/volume) 0. 5 10*3 0.0-1.0 Automated eosinophil count 0.0 10*3/uL 0 .0-0.3 Automated blood basophil count (count/volume) 0.0 10*3/uL 0.0-0.1 Whole blood basic metabolic panel - 11/05 14:20 Serum or plasma sodium measurement (moles/volume) 140 mmol/L 135-145 Serum or plasma potassium measurement (moles/volume) 3.8 mmol/L 3.6-5.0 Serum or plasma chloride measurement (moles/volume) 109 mmol/L 98-107 Carbon dioxide 21 mmol/L 21-32 Serum or plasma anion gap determination (moles/volume) 10 mmol/L 5-14 Serum or plasma urea nitrogen measurement (mass/volume ) 12 mg/dL 7-18 Serum or plasma creatinine measurement (mass/volume) 0.69 mg/dL 0.60-1.30 Serum or plasma urea nitrogen/creatinine mass ratio 17 NRG Serum or plasma creatinine measurement w ith calculation of estimated glomerular filtration rate > NRG Serum or plasma glucose measurement (mass/volume) 91 mg/dL 70-105 Serum or plasma calcium measurement (mass/volume) 8.3 mg/dL 8.5-10.1 PROCALCITONIN (PCT) - 04/25/19 14:20 PROCALCITONIN (PCT) 0.04 ng/mL <0.10 Bacterial blood culture - 04/25/19 14:20 Bacterial blood culture NG NRG Bacterial blood culture - 04/25/19 14:25 Bacterial blood culture NG NRG Capillary blood glucose measurement by g lucometer (mass/volume) - 04/25/19 16:28 Capillary blood glucose measurement by glucometer (mas s/volume) 88 mg/dL 70-110 Capillary blood glucose measurement by g lucometer (mass/volume) - 04/25/19 21:08 Capillary blood glucose measurement by glucometer (mas s/volume) 121 mg/dL 70-110 Complete blood count (CBC) with automate d white blood cell (WBC) differential - 04/26/19 04:55 Blood leukocytes automated count (number/volume) 5.0 10*3/uL 4.3-11.0 Blood erythrocytes automated count (number/volume) 4.97 10*6/uL 4.35-5.85 Venous blood hemoglobin measurement (mass/volume) 12.7 g/dL 11.5-16.0 Blood hematocrit (volume fraction) 41 % 35-52 Automated erythrocyte mean corpuscular volume 82 [ foz_us] 80-99 Automated erythrocyte mean corpuscular h emoglobin (mass per erythrocyte) 26 pg 25-34 Automated erythrocyte mean corpuscular h emoglobin concentration measurement (mass/volume) 31 g/dL 32-36 Automated erythrocyte distribution width ratio 14. 7 % 10.0- 14.5 Automated blood platelet count (count/volume) 353 10*3/uL 130-400 Automated blood platelet mean volume measurement 9.5 [foz_us] 7.4-10.4 Automated blood neutrophils/100 leukocytes 80 % 42-75 Automated blood lymphocytes/100 leukocytes 18 % 12-44 Blood monocytes/100 leukocytes 2 % 0-12 Automated blood eosinophils/100 leukocytes 0 % 0-10 Automated blood basophils/100 leukocytes 0 % 0-10 Blood neutrophils automated count (number/volume) 4.0 10*3 1.8-7.8 Blood lymphocytes automated count (number/volume) 0.9 10*3 1.0-4.0 Blood monocytes automated count (number/volume) 0. 1 10*3 0.0-1.0 Automated eosinophil count 0.0 10*3/uL 0 .0-0.3 Automated blood basophil count (count/volume) 0.0 10*3/uL 0.0-0.1 Whole blood basic metabolic panel - 12/06 04:55 Serum or plasma sodium measurement (moles/volume) 140 mmol/L 135-145 Serum or plasma potassium measurement (moles/volume) 5.3 mmol/L 3.6-5.0 Serum or plasma chloride measurement (moles/volume) 107 mmol/L 98-107 Carbon dioxide 21 mmol/L 21-32 Serum or plasma anion gap determination (moles/volume) 12 mmol/L 5-14 Serum or plasma urea nitrogen measurement (mass/volume ) 14 mg/dL 7-18 Serum or plasma creatinine measurement (mass/volume) 0.78 mg/dL 0.60-1.30 Serum or plasma urea nitrogen/creatinine mass ratio 18 NRG Serum or plasma creatinine measurement w ith calculation of estimated glomerular filtration rate > NRG Serum or plasma glucose measurement (mass/volume) 154 mg/dL 70-105 Serum or plasma calcium measurement (mass/volume) 8.9 mg/dL 8.5-10.1 Serum or plasma lithium measurement (mol es/volume) - 04/26/19 04:55 BNP PT 16.9 pg/mL <100.0 PROCALCITONIN (PCT) - 04/26/19 04:55 PROCALCITONIN (PCT) 0.03 ng/mL <0.10 Capillary blood glucose measurement by g lucometer (mass/volume) - 04/26/19 05:35 Capillary blood glucose measurement by glucometer (mas s/volume) 172 mg/dL 70-110 Capillary blood glucose measurement by g lucometer (mass/volume) - 04/26/19 10:34 Capillary blood glucose measurement by glucometer (mas s/volume) 148 mg/dL 70-110 Encounters ACCT No. Visit Date/Time Discharge Status Pt. Type Provider Facility Loc./Unit Complaint [id number] 08/16/2019 12:26:00 020 23:59:59 CLS Outpatient BRIANNE TANG [facility] RAD R09.89,R06.09 [id number] 04/25/2019 12:55:00 020 11:03:00 DIS Inpatient SAVANAH MEDINA, LENY Warren [facility] 4TH PNEUMONIA [id number] 04/24/2019 10:34:00 020 13:37:00 DIS Outpatient BRIANNE TANG [facility] PNEUMONIA,DEHYD RATIN, [id number] 06/22/2018 10:34:00 019 13:08:00 DIS Outpatient TINO LAU T[employer] SENIOR ASSOCIATE [facility] DEHYDRATIN,NAUSEA,VOMITING,DIARRHEA [id number] 07/07/2017 17:34:00 018 23:59:59 CLS Outpatient BRIANNE TANG [facility] RAD NECK MASS Z22.1 [id number] 06/17/2017 10:35:00 018 23:59:59 CLS Outpatient BRIANNE TANG [facility] RAD THYROMEGALY [id number] 05/12/2017 00:12:00 01/24/2 018 23:59:59 CLS Preadmit JAY UMANZOR MD [facility] IRON DEFICIENCY [id number] 02/19/2017 15:10:00 018 00:01:00 DIS Outpatient JAY UMANZOR MD [facility] IRON DEFICIENCY
[2019-08-23] MEDS ORDERED: NS IV 500 ML 500 ML IV ONE (06:36)
--- NOTE | 2019-08-23 06:46 | ED Respiratory ---
General Chief Complaint: Respiratory Problems Stated Complaint: POSS MED RXN Nursing Triage Note: Pt to [facility] 10 with c/o SOB from pos allergic Rx to progesterone 100mg capsule that she's been taking for a year. Pt denies any fever/chills or CP. Source: patient Exam Limitations: no limitations History of Present Illness Date Seen by Provider: August 23, 2019 Time Seen by Provider: 06:25 Initial Comments Here with report of shortness of air but has been going on over the last week but has been intermittent over the last 5 months. Started when she got pneumonia in April. She was hospitalized for a few days and then discharged. She states she never really got better after that. She was seen by her primary care provider and had chest x-ray done 1 week ago. They are working on getting CT angiogram of the chest but that has not occurred yet. States that she is concerned she may be having medication reaction as she feels like her arms and legs can't stop moving. Overnight everything got worse and she had central anterior chest pain that she describes as tightness and associated shortness of breath. Denies fever, chills, sore throat, runny nose or significant cough. Denies other symptoms. Timing/Duration: week, getting worse Severity: moderate Prior Episodes/Possible Cause: chronic episodes Modifying Factors: Worse With Activity; Improves With Rest Associated Symptoms: chest pain/soreness; No cough, No facial pain, No fever/chills, No muscle aches, No nasal congestion, No nasal drainage; shortness of breath; No sore throat, No wheezing Allergies and Home Medications Allergies Coded Allergies: Cephalosporins (Verified Allergy, Intermediate, HIVES, 04/25/19) Home Medications Albuterol Sulfate 2.5 Mg/3 Ml Vial.neb, 2.5 MG NEB Q4H PRN for SHORTNESS OF BREATH, (Reported) Apixaban 5 Mg Tablet, 5 MG PO BID TAKE 2 TABLETS BID X 7 DAYS, THEN 1 TABLET BID Prescribed by: ALEXY FAULKNER on 08/23/19 0950 Benzonatate 100 Mg Capsule, 100 MG PO Q8H PRN for COUGH, (Reported) Dextroamphetamine/Amphetamine 10 Mg Tablet, 10 MG PO DAILY PRN for LYMPHATIC SYSTEM STIMULATION, (Reported) Doxycycline Hyclate 100 Mg Capsule, 100 MG PO BID Prescribed by: LENY PAVON on 04/26/19 1103 Fluconazole 150 Mg Tablet, 150 MG PO Q72H PRN for YEAST INFECTION, (Reported) Lactobacillus Acidophilus 1 Each Capsule, 1 CAP PO DAILY PRN for WHEN TAKING ANTIBIOTICS, (Reported) Liraglutide 3 Mg/0.5 Ml Pen.injctr, 0.6 MG SC HS PRN for CRAVINGS, (Reported) Progesterone,Micronized 100 Mg Capsule, 100 MG PO UD, (Reported) TAKES DAILY DAYS 10 THROUGH 28 OF CYCLE Promethazine HCl/Codeine 5 Ml Syrup, 5 ML PO Q4H PRN for COUGH, (Reported) [Methocobalamin] , 1 ML IM DAILY, (Reported) Patient Home Medication List Home Medication List Reviewed: Yes Review of Systems Review of Systems Constitutional: see HPI; No chills, No fever EENTM: no symptoms reported Respiratory: see HPI Cardiovascular: see HPI; No edema, No palpitations Gastrointestinal: No abdominal pain, No nausea, No vomiting Genitourinary: no symptoms reported Musculoskeletal: no symptoms reported Skin: no symptoms reported Psychiatric/Neurological: Anxiety; Denies Weakness All Other Systems Reviewed Negative Unless Noted: Yes Past Mgrckyw-Dtsedh-Onibie Hx Past Med/Social Hx: Reviewed Nursing Past Med/Soc Hx Patient Social History Alcohol Use: Denies Use Recreational Drug Use: No Smoking Status: Never a Smoker 2nd Hand Smoke Exposure: No Recent Foreign Travel: No Contact w/Someone Who Travel: No Recent Infectious Disease Expo: No Recent Hopitalizations: No Physical Abuse: No Sexual Abuse: No Mistreated: No Fear: No Immunizations Up To Date Tetanus Booster (TDap): Unknown Seasonal Allergies Seasonal Allergies: No Past Medical History Surgeries: Yes (GASTRIC SLEEVE, GASTRIC BYPASS, 2012,ORIF RIGHT TIBIAL FX) Gallbladder Respiratory: No Currently Using CPAP: No Currently Using BIPAP: No Cardiac: No Neurological: No Reproductive Disorders: No Gastrointestinal: No Musculoskeletal: No Cancer: No Psychosocial: No Integumentary: No Adverse Reaction/Blood Tranf: Yes (WITH SURGERY) Family Medical History Reviewed Nursing Family Hx Patient reports no known family medical history. No Pertinent Family Hx Physical Exam Vital Signs - First Documented 08/23/19 06:18 Temp 37.0 Pulse 73 Resp 22 B/P (MAP) 118/102 (107) Pulse Ox 99 O2 Delivery Room Air Capillary Refill : Less Than 3 Seconds Height: 5'6.50" Weight: 336lbs. 0.0oz. 152.588602yn; 53.00 BMI Method: General Appearance: WD/WN, no apparent distress HEENT: PERRL/EOMI, pharynx normal Neck: full range of motion, supple Respiratory: lungs clear, normal breath sounds Cardiovascular: regular rate, rhythm, no murmur Gastrointestinal: non tender, soft Extremities: non-tender, normal inspection Neurologic/Psychiatric: alert, oriented x 3 Skin: normal color, warm/dry Anxious appearing Progress/Results/Core Measures Suspected Sepsis Recent Fever Within 48 Hours: No Infection Criteria Present: None New/Unexplained Altered Menta: No Sepsis Screen: No Definite Risk SIRS Temperature: Pulse: 73 Respiratory Rate: 22 Laboratory Tests 08/23/19 06:35: White Blood Count 7.5 Blood Pressure 118 /102 Mean: 107 Laboratory Tests 08/23/19 06:35: Creatinine 0.69, Platelet Count 327, Total Bilirubin 0.3 Results/Orders Lab Results Laboratory Tests Test 08/23/19 06:35 Range/Units White Blood Count 7.5 4.3-11.0 10^3/uL Red Blood Count 4.84 4.35-5.85 10^6/uL Hemoglobin 12.4 11.5-16.0 G/DL Hematocrit 39 35-52 % Mean Corpuscular Volume 80 80-99 FL Mean Corpuscular Hemoglobin 26 25-34 PG Mean Corpuscular Hemoglobin Concent 32 32-36 G/DL Red Cell Distribution Width 14.6 H 10.0-14.5 % Platelet Count 327 130-400 10^3/uL Mean Platelet Volume 9.6 7.4-10.4 FL Neutrophils (%) (Auto) 56 42-75 % Lymphocytes (%) (Auto) 34 12-44 % Monocytes (%) (Auto) 8 0-12 % Eosinophils (%) (Auto) 2 0-10 % Basophils (%) (Auto) 0 0-10 % Neutrophils # (Auto) 4.2 1.8-7.8 X 10^3 Lymphocytes # (Auto) 2.6 1.0-4.0 X 10^3 Monocytes # (Auto) 0.6 0.0-1.0 X 10^3 Eosinophils # (Auto) 0.1 0.0-0.3 10^3/uL Basophils # (Auto) 0.0 0.0-0.1 10^3/uL Erythrocyte Sedimentation Rate 41 H 0-20 MM/HR D-Dimer 6.99 H 0.00-0.49 UG/ML Sodium Level 141 135-145 MMOL/L Potassium Level 4.2 3.6-5.0 MMOL/L Chloride Level 111 H 98-107 MMOL/L Carbon Dioxide Level 20 L 21-32 MMOL/L Anion Gap 10 5-14 MMOL/L Blood Urea Nitrogen 15 7-18 MG/DL Creatinine 0.69 0.60-1.30 MG/DL Estimat Glomerular Filtration Rate > 60 BUN/Creatinine Ratio 22 Glucose Level 95 70-105 MG/DL Calcium Level 8.4 L 8.5-10.1 MG/DL Corrected Calcium 8.8 8.5-10.1 MG/DL Total Bilirubin 0.3 0.1-1.0 MG/DL Aspartate Amino Transf (AST/SGOT) 18 5-34 U/L Alanine Aminotransferase (ALT/SGPT) 10 0-55 U/L Alkaline Phosphatase 86 40-136 U/L Troponin I < 0.028 <0.028 NG/ML C-Reactive Protein High Sensitivity 1.48 H 0.00-0.50 MG/DL Total Protein 7.0 6.4-8.2 GM/DL Albumin 3.5 3.2-4.5 GM/DL Procalcitonin 0.02 <0.10 NG/ML Thyroid Stimulating Hormone (TSH) 1.39 0.35-4.94 UIU/ML Serum Test, Qualitative NEGATIVE NEGATIVE My Orders Orders - ALEXY FAULKNER MD Cbc With Automated Diff (08/23/19 06:36) Comprehensive Metabolic Panel (08/23/19 06:36) Hs C Reactive Protein (08/23/19 06:36) Fibrin Degradation Products (08/23/19 06:36) Thyroid Stimulating Hormone (08/23/19 06:36) Troponin I (08/23/19 06:36) Ed Iv/Invasive Line Start (08/23/19 06:36) Ns Iv 500 Ml (Sodium Chloride 0.9%) (08/23/19 06:36) Ekg Tracing (08/23/19 06:36) Procalcitonin (Pct) (08/23/19 06:36) Erythrocyte Sedimentation Rate (08/23/19 06:36) Hcg,Qualitative Serum (08/23/19 06:36) Ct Angio Chest W (08/23/19 07:08) Iohexol Injection (Omnipaque 350 Mg/Ml 1 (08/23/19 07:15) Received Contrast (Hold Metformin- Contr (08/23/19 07:15) Ns (Ivpb) (Sodium Chloride 0.9% Ivpb Bag (08/23/19 07:15) Us Venous Lower Ext Edil (08/23/19 08:14) Apixaban Tablet (Eliquis Tablet) (08/23/19 08:30) Medications Given in ED Current Medications Medications Dose Ordered Sig/Veronique Route Start Time Stop Time Status Last Admin Dose Admin Apixaban 10 mg ONCE ONCE PO 08/23/19 08:30 08/23/19 08:31 DC 08/23/19 08:52 10 MG Iohexol 150 ml ONCE ONCE IV 08/23/19 07:15 08/23/19 07:17 DC 08/23/19 07:51 115 ML Sodium Chloride 100 ml ONCE ONCE IV 08/23/19 07:15 08/23/19 07:17 DC 08/23/19 07:51 80 ML Sodium Chloride 500 ml @ 0 mls/hr Q0M ONCE IV 08/23/19 06:36 08/23/19 06:40 DC 08/23/19 06:48 500 MLS/HR Vital Signs/I&O 08/23/19 06:18 Temp 37.0 Pulse 73 Resp 22 B/P (MAP) 118/102 (107) Pulse Ox 99 O2 Delivery Room Air Capillary Refill : Less Than 3 Seconds Blood Pressure Mean: 107 Progress Note : Progress Note Seen and evaluated. IV, labs, EKG and normal saline 500 mL bolus ordered. Anticipate CT angiogram of the chest to rule out PE. Monitor patient. 0740: D- dimer 6.99. No indication of infection CBC is normal and other labs would not indicate viral or bacterial infection. Concern for pulmonary embolism given her progesterone use an body habitus. We will get CT angiogram of the chest to rule out PE. Monitor patient. 0830: Patient was found to have bilateral pulmonary emboli. I did discuss the case with Dr. Sloan. We will initiate Eliquis 10 mg by mouth now and continue seven-day starter pack as well as one month normal dosing. She will follow-up with him for recheck and further evaluation. We are going to get bilateral lower extremity ultrasound before departure. This was discussed with the patient who agrees. Monitor patient. 1010: Ultrasound negative. Discharged home with return precautions. Patient verbalize understanding instructions and agreement with plan. ECG Initial ECG Impression Date: August 23, 2019 Initial ECG Impression Time: 06:42 Initial ECG Rate: 63 Initial ECG Rhythm: Normal Sinus Comment Sinus rhythm with normal axis. No evidence of ST elevation UT. No previous available for comparison. T-wave inversion noted in lead 3 and anterior leads. Interpreted by me. Diagnostic Imaging Diagonstic Imaging: CT Plain Films/CT/US/NM/MRI: chest Comments [facility] [place], [place] NAME: BO CARBAJAL [facility] REC#: [id number] PT STATUS: REG ER : 1970 PHYSICIAN: ALEXY FAULKNER MD ADMIT DATE: 08/23/19/ER Signed Date of Exam:08/23/19 CT ANGIO CHEST W PROCEDURE: CT angiography of the chest with contrast. TECHNIQUE: Multiple contiguous axial images were obtained through the chest after uneventful bolus administration of intravenous contrast. 3D reconstructed CTA MIP acquisitions were also performed. Auto Exposure Controls were utilized during the CT exam to meet ALARA standards for radiation dose reduction. INDICATION: Shortness of breath. FINDINGS: Bolus IV contrast shows good opacification of the aorta without evidence of aneurysm or dissection. Pulmonary arteries well opacified. There are several filling defects noted in the right lower lobe pulmonary arteries. Main pulmonary arteries are clear. Small defect noted in the upper lobe on the left. The lungs are well-aerated and clear. No mediastinal or hilar adenopathy pathologic size. No pleural effusions or pericardial effusion. IMPRESSION: Findings are consistent with acute bilateral pulmonary embolus with largest pulmonary emboli in the right lower lobe. Small embolus in the left upper lobe. These findings were called and discussed with Dr. Faulkner. Dictated by: Dictated on workstation # [id number] Dict: 08/23/19 0756 Trans: 08/23/19 0917 [facility] [id number] Interpreted by: DEVIN ERICKSON MD Electronically signed by: DEVIN ERICKSON MD 08/23/19916 Diagonstic Imaging: Ultrasound Plain Films/CT/US/NM/MRI: leg Comments [facility], [place], [place] NAME: BO CARBAJAL [facility] REC#: [id number] PT STATUS: REG ER : 1970 PHYSICIAN: ALEXY FAULKNER MD ADMIT DATE: 08/23/19/ER Draft Date of Exam:08/23/19 US VENOUS LOWER EXT EDIL PROCEDURE: US Venous Lower Ext Edil. TECHNIQUE: Multiple real-time grayscale images were obtained over the lower extremities in various projections, bilaterally. Additional duplex Doppler and color Doppler images were also obtained. INDICATION: Shortness of breath. Lower extremity swelling. FINDINGS: Color Doppler imaging shows blood flow throughout the lower extremity deep venous system. Calf compression shows normal augmentation of flow at the popliteal level. IMPRESSION: No evidence of deep venous thrombosis. Dictated on workstation # [id number] Dict: 08/23/1936 Trans: 08/23/19 0942 [facility] [id number] Interpreted by: DEVIN ERICKSON MD Electronically signed by: Departure Impression Primary Impression: Bilateral pulmonary embolism Disposition: 01 HOME, SELF-CARE Condition: Stable Departure-Patient Inst. Decision time for Depature: 09:48 Referrals: ANABEL SLOAN DO (PCP/Family) Primary Care Physician Patient Instructions: Pulmonary Embolism (Blood Clot in the Lungs) Add. Discharge Instructions: All discharge instructions reviewed with patient and/or family. Voiced understa nding. You have blood clots in both lungs with right greater than left. You need to call and make appointment with Dr. Sloan within the next few days. Call his office today for appointment and let them know you will need to see him. This was discussed with him and he wants to see you. Fill prescription and start medications as directed. Return for worse pain, fever, vomiting, weakness, breathing problems or other concerns as needed. Scripts Apixaban (Eliquis) 5 Mg Tablet 5 MG PO BID for 30 Days, #72 TAB TAKE 2 TABLETS BID X 7 DAYS, THEN 1 TABLET BID Prov: ALEXY FAULKNER MD 08/23/19 Copy Copies To 1: ANABEL SLOAN TIMOTHY D MD August 23, 2019 06:46
[2019-08-23 06:47] LABS: BASOPHILS % (AUTO) 0 % (0-10); EOSINOPHILS # (AUTO) 0.1 10^3/uL (0.0-0.3); EOSINOPHILS % (AUTO) 2 % (0-10); HEMATOCRIT 39 % (35-52); HEMOGLOBIN 12.4 G/DL (11.5-16.0); LYMPHOCYTES # (AUTO) 2.6 X 10^3 (1.0-4.0); LYMPHOCYTES % (AUTO) 34 % (12-44); MEAN CORPUSCULAR HEMOGLOBIN 26 PG (25-34); MEAN CORPUSCULAR HGB CONC 32 G/DL (32-36); MEAN CORPUSCULAR VOLUME 80 FL (80-99); MEAN PLATELET VOLUME 9.6 FL (7.4-10.4); MONOCYTES # (AUTO) 0.6 X 10^3 (0.0-1.0); MONOCYTES % (AUTO) 8 % (0-12); NEUTROPHILS # (AUTO) 4.2 X 10^3 (1.8-7.8); NEUTROPHILS % (AUTO) 56 % (42-75); PLATELET COUNT 327 10^3/uL (130-400); RED CELL DISTRIBUTION WIDTH 14.6 % (10.0-14.5); WHITE BLOOD COUNT 7.5 10^3/uL (4.3-11.0)
[2019-08-23 06:59] LABS: ALBUMIN 3.5 GM/DL (3.2-4.5); POTASSIUM 4.2 MMOL/L (3.6-5.0)
[2019-08-23 07:00] LABS: CHLORIDE 111 MMOL/L (98-107); SODIUM 141 MMOL/L (135-145)
[2019-08-23 07:01] LABS: CALCIUM 8.4 MG/DL (8.5-10.1)
[2019-08-23 07:02] LABS: GLUCOSE 95 MG/DL (70-105)
[2019-08-23 07:03] LABS: CARBON DIOXIDE 20 MMOL/L (21-32)
[2019-08-23 07:04] LABS: BILIRUBIN,TOTAL 0.3 MG/DL (0.1-1.0)
[2019-08-23 07:05] LABS: ALKALINE PHOSPHATASE 86 U/L (40-136)
[2019-08-23 07:06] LABS: CREATININE SERUM 0.69 MG/DL (0.60-1.30); GFR ESTIMATED > 60
[2019-08-23 07:07] LABS: BUN/CREATININE RATIO 22
[2019-08-23 07:08] LABS: ALANINE AMINOTRANSFERASE 10 U/L (0-55)
[2019-08-23] MEDS ORDERED: HOLD METFORMIN - RECEIVED CONTRAST 20 ML VIAL IV SCH (07:15)
[2019-08-23] MEDS ORDERED: IOHEXOL 350 MG/ML 150 ML (OMNIPAQUE 350) VIAL IV ONE (07:15)
[2019-08-23] MEDS ORDERED: NS 100 ML (IVPB) BAG IV ONE (07:15)
[2019-08-23 07:16] LABS: ERYTHROCYTE SEDIMENTATION RATE 41 MM/HR (0-20)
--- NOTE | 2019-08-23 08:00 | NUR ---
PT DENIES NEEDS AT THIS TIME. NOTIFIED HER DR WOULD BE IN SOON TO TALK TO HER.
--- NOTE | 2019-08-23 08:06 | NUR ---
IN TALKING TO PT AT THIS TIME.
--- NOTE | 2019-08-23 08:13 | Diagnostic Imaging Report ---
PROCEDURE: CT angiography of the chest with contrast. TECHNIQUE: Multiple contiguous axial images were obtained through the chest after uneventful bolus administration of intravenous contrast. 3D reconstructed CTA MIP acquisitions were also performed. Auto Exposure Controls were utilized during the CT exam to meet ALARA standards for radiation dose reduction. INDICATION: Shortness of breath. FINDINGS: Bolus IV contrast shows good opacification of the aorta without evidence of aneurysm or dissection. Pulmonary arteries well opacified. There are several filling defects noted in the right lower lobe pulmonary arteries. Main pulmonary arteries are clear. Small defect noted in the upper lobe on the left. The lungs are well-aerated and clear. No mediastinal or hilar adenopathy pathologic size. No pleural effusions or pericardial effusion. IMPRESSION: Findings are consistent with acute bilateral pulmonary embolus with largest pulmonary emboli in the right lower lobe. Small embolus in the left upper lobe. These findings were called and discussed with Dr. Galarza. Dictated by: Dictated on workstation # [id number]
[2019-08-23] MEDS ORDERED: APIXABAN 5 MG (ELIQUIS) TABLET PO ONE (08:30)
--- NOTE | 2019-08-23 09:04 | NUR ---
SONO DONE AT BEDSIDE.
--- NOTE | 2019-08-23 09:43 | Diagnostic Imaging Report ---
PROCEDURE: US Venous Lower Ext Te. TECHNIQUE: Multiple real-time grayscale images were obtained over the lower extremities in various projections, bilaterally. Additional duplex Doppler and color Doppler images were also obtained. INDICATION: Shortness of breath. Lower extremity swelling. FINDINGS: Color Doppler imaging shows blood flow throughout the lower extremity deep venous system. Calf compression shows normal augmentation of flow at the popliteal level. IMPRESSION: No evidence of deep venous thrombosis. Dictated by: Dictated on workstation # [id number]
[2019-08-23] MEDS ORDERED: APIX5TAB PO (09:50)
[2019-08-23 10:28] VITALS: BP 131/59
== END 2019-08-23 10:35 | disposition home or self-care (01) ==
LOC: EDUNIT# 06:02 → ER 06:06
DX: I26.99 Other pulmonary embolism without acute cor pulmonale (principal); Z88.1 Allergy status to other antibiotic agents; Z79.01 Long term (current) use of anticoagulants
CPT/HCPCS: 36415; 71275; 80053; 84145; 84443; 84484; 84703; 85025; 85379; 85652; 86141; 93005; 93970

== ENCOUNTER 2020-04-01 18:12 | Inpatient (IN) | payer BC ==
[~2020-04-01] VITALS: Ht 170.2 cm; Wt 146.2 kg
[~2020-04-01 18:12] MED LIST changes: +APIX5TAB PO; -LIRA3PEN SC; +LIRA3PEN SQ
[2020-04-01 18:50] LABS: BASOPHILS % (AUTO) 0 % (0-10); EOSINOPHILS % (AUTO) 0 % (0-10); HEMATOCRIT 45 % (35-52); HEMOGLOBIN 14.2 g/dL (11.5-16.0); LYMPHOCYTES # (AUTO) 1.2 10^3/uL (1.0-4.0); LYMPHOCYTES % (AUTO) 16 % (12-44); MEAN CORPUSCULAR HEMOGLOBIN 26 pg (25-34); MEAN CORPUSCULAR HGB CONC 32 g/dL (32-36); MEAN CORPUSCULAR VOLUME 81 fL (80-99); MEAN PLATELET VOLUME 9.5 fL (9.0-12.2); MONOCYTES # (AUTO) 0.4 10^3/uL (0.0-1.0); MONOCYTES % (AUTO) 5 % (0-12); NEUTROPHILS # (AUTO) 5.7 10^3/uL (1.8-7.8); NEUTROPHILS % (AUTO) 78 % (42-75); PLATELET COUNT 245 10^3/uL (130-400); WHITE BLOOD COUNT 7.3 10^3/uL (4.3-11.0)
[2020-04-01 19:03] LABS: PROTHROMBIN TIME PATIENT 13.2 SEC (12.2-14.7)
[2020-04-01 19:04] LABS: ALBUMIN 3.8 GM/DL (3.2-4.5); CHLORIDE 107 MMOL/L (98-107); POTASSIUM 4.4 MMOL/L (3.6-5.0); SODIUM 140 MMOL/L (135-145)
[2020-04-01 19:05] LABS: CALCIUM 8.4 MG/DL (8.5-10.1)
[2020-04-01 19:06] LABS: GLUCOSE 183 MG/DL (70-105); TOTAL PROTEIN 7.8 GM/DL (6.4-8.2)
[2020-04-01 19:07] LABS: CARBON DIOXIDE 20 MMOL/L (21-32)
[2020-04-01 19:08] LABS: BILIRUBIN,TOTAL 0.3 MG/DL (0.1-1.0)
[2020-04-01 19:10] LABS: ALKALINE PHOSPHATASE 84 U/L (40-136); CREATININE SERUM 0.78 MG/DL (0.60-1.30); GFR ESTIMATED > 60
[2020-04-01 19:11] LABS: BUN/CREATININE RATIO 19
--- NOTE | 2020-04-01 19:11 | Diagnostic Imaging Report ---
INDICATION: DYSPNEA, COVID+ COMPARISON: 08/16/2019 FINDINGS: Single frontal view of the chest demonstrates normal heart size and pulmonary vascularity. The lungs are well aerated and clear. No large pleural effusion or pneumothorax is seen. The visualized osseous structures show no acute abnormalities. IMPRESSION: 1. No acute cardiopulmonary process. Dictated by: Dictated on workstation # [id number]
[2020-04-01 19:13] LABS: ALANINE AMINOTRANSFERASE 53 U/L (0-55); MAGNESIUM 1.8 MG/DL (1.6-2.4)
--- NOTE | 2020-04-01 19:13 | ED Respiratory ---
General Chief Complaint: Respiratory Problems Stated Complaint: COVID POSITIVE/LOW O2/HX BLOOD CLOTS AND PNA Nursing Triage Note: PT TO RM 8 BY WHEELCHAIR WITH COMPLAINT OF SOA AND COVID +. STATES TESTED POSITIVE ON WEDNESDAY. STATES LOZANO TOLD HER TO COME TO ER FOR EVALUATION DUE TO OXYGEN DROPPING TO 93-94%. Source: patient History of Present Illness Date Seen by Provider: Apr 01, 2020 Time Seen by Provider: 18:35 Initial Comments PT ARRIVES VIA POV STATES SHE HAS BEEN SICK WITH COVID-19 SYMPTOMS SINCE Wednesday03/24/20 TESTED + ON 03/26/20--WAS DONE AT HER WORK/[employer] PT HAS HAD FEVER UP TO 101, AND CHILLS C/O HEADACHE C/O BODY ACHES C/O FATIGUE C/O NON-PRODUCTIVE COUGH C/O SHORTNESS OF BREATH C/O LOSS OF TASTE AND SMELL C/O NAUSEA/VOMITING/DIARRHEA--NO VOMITING TODAY, BUT DIARRHEA X 6-8 TODAY NO ABDOMINAL PAIN HAS NOT EATEN TODAY, BUT ARRIVES WITH A LARGE BAG OF FOOD FROM [employer] AND LARGE DRINK FROM SAME. C/O BEING HUNGRY HAS BEEN DRINKING FLUIDS WELL AND VOIDING A NORMAL AMOUNT STATES SHE WAS STARTED ON ZITHROMAX AND DECADRON LAST WEEK BY SHYANNE TANG, AND HER LAST DOSE OF ZITHROMAX WAS YESTERDAY. STATES SHE SAW SHYANNE TANG TODAY FOR FOLLOW UP AND TOLD HER TO COME HER BECAUSE OF HER "LOW O2 SATS OF 93-94%" PT'S FIRST VISIT HERE WAS 04/25/19 FOR PNEUMONIA PT HERE 08/23/19 AND DX WITH BILATERAL P.E.'S AND TOOK ELIQUIS FOR A SHORT PERIOD OF TIME. HAS NOT TAKEN ANY FOR MANY MONTHS. NO CHEST PAIN NO SWELLING IN LEGS/ FEET OR PAIN IN CALVES NO PALPITATIONS NO DIZZINESS OR SYNCOPE PCP: SHYANNE TANG/ DR. TANG Allergies and Home Medications Allergies Coded Allergies: Cephalosporins (Verified Allergy, Intermediate, HIVES, 04/25/19) Home Medications Albuterol Sulfate 2.5 Mg/3 Ml Vial.neb, 2.5 MG NEB Q4H PRN for SHORTNESS OF BREATH, (Reported) Apixaban 5 Mg Tablet, 5 MG PO BID TAKE 2 TABLETS BID X 7 DAYS, THEN 1 TABLET BID Prescribed by: ALEXY FAULKNER on 08/23/19 0950 Benzonatate 100 Mg Capsule, 100 MG PO Q8H PRN for COUGH, (Reported) Dextroamphetamine/Amphetamine 10 Mg Tablet, 10 MG PO DAILY PRN for LYMPHATIC SYSTEM STIMULATION, (Reported) Doxycycline Hyclate 100 Mg Capsule, 100 MG PO BID Prescribed by: LENY PAVON on 04/26/19 1103 Fluconazole 150 Mg Tablet, 150 MG PO Q72H PRN for YEAST INFECTION, (Reported) Lactobacillus Acidophilus 1 Each Capsule, 1 CAP PO DAILY PRN for WHEN TAKING ANTIBIOTICS, (Reported) Liraglutide 3 Mg/0.5 Ml Pen.injctr, 0.6 MG SC HS PRN for CRAVINGS, (Reported) Progesterone,Micronized 100 Mg Capsule, 100 MG PO UD, (Reported) TAKES DAILY DAYS 10 THROUGH 28 OF CYCLE Promethazine HCl/Codeine 5 Ml Syrup, 5 ML PO Q4H PRN for COUGH, (Reported) [Methocobalamin] , 1 ML IM DAILY, (Reported) Review of Systems Review of Systems Constitutional: see HPI, chills; No dizziness; fever, malaise EENTM: see HPI; No nose congestion, No throat pain Respiratory: see HPI, cough, short of breath Cardiovascular: no symptoms reported; No chest pain, No edema, No palpitations, No syncope Gastrointestinal: see HPI; No abdominal pain; diarrhea, loss of appetite, nausea, vomiting Genitourinary: no symptoms reported; No decreased output Musculoskeletal: see HPI (BODY ACHES) Skin: no symptoms reported Psychiatric/Neurological: See HPI, Headache; Denies Numbness, Denies Par esthesia, Denies Seizure, Denies Tingling, Denies Weakness Hematologic/Lymphatic: See HPI Immunological/Allergic: no symptoms reported Past Apqlcqr-Qnkotn-Qmzveu Hx Past Med/Social Hx: Reviewed and Corrections made Patient Social History Alcohol Use: Rarely Uses Recreational Drug Use: No Smoking Status: Never a Smoker 2nd Hand Smoke Exposure: No Recent Foreign Travel: No Contact w/Someone Who Travel: No Recent Infectious Disease Expo: Yes Recent Hopitalizations: No Immunizations Up To Date Tetanus Booster (TDap): Unknown Seasonal Allergies Seasonal Allergies: No Past Medical History Surgeries: Yes (GASTRIC SLEEVE, GASTRIC BYPASS, 2012,ORIF RIGHT ANKLE/TIBIAL FX) Abdominal, Gallbladder, Orthopedic Respiratory: Yes Pneumonia, Pulmonary Embolism Currently Using CPAP: No Currently Using BIPAP: No Cardiac: No Neurological: No Reproductive Disorders: No Female Reproductive Disorders: Denies Genitourinary: No Gastrointestinal: Yes (GASTRIC SLEEVE AND GASTRIC BYPASS; CHOLECYSTECTOMY) Gall Bladder Disease Musculoskeletal: Yes (RIGHT ANKLE FX/ORIF) Fractures Endocrine: Yes (MORBID OBESITY) Cancer: No Psychosocial: No Integumentary: No Blood Disorders: Yes (BILATERAL P.E.'S 08/2019) Adverse Reaction/Blood Tranf: Yes (WITH SURGERY) Family Medical History Patient reports no known family medical history. No Pertinent Family Hx PT DENIES BEING DIABETIC, BUT IS ON SAXENDA PT DENIES HAVING ANY MENTAL HEALTH/PSYCH ISSUES, BUT STATES SHE IS ON ADDERALL "TO HELP LYMPHATICS" Physical Exam Vital Signs - First Documented 04/01/20 18:22 Temp 36.4 Pulse 112 Resp 13 B/P (MAP) 140/98 (112) Pulse Ox 93 O2 Delivery Room Air Capillary Refill : Less Than 3 Seconds Height: 5'6.50" Weight: 336lbs. 0.0oz. 152.976197ei; 54.00 BMI Method: General Appearance: WD/WN, no apparent distress, obese (MORBIDLY OBESE), other (DOES NOT APPEAR ILL OR TO BE IN ANY DISCOMFORT OR DISTRESS. TALKS IN FULL SENTENCES, NO DYSPNEA, NO COUGH NOTED AT ANY TIME. ) HEENT: PERRL/EOMI, normal ENT inspection Neck: normal inspection Respiratory: normal breath sounds, no respiratory distress, no accessory muscle use Cardiovascular: normal peripheral pulses, regular rate, rhythm, no edema, no JVD, no murmur Gastrointestinal: non tender, soft Extremities: normal inspection, no pedal edema, no calf tenderness, normal capillary refill Neurologic/Psychiatric: ward attendant II-XII nml as tested, no motor/sensory deficits, alert, normal mood/affect, oriented x 3 Skin: normal color, warm/dry Focused Exam Lactate Level 04/01/20 18:35: Lactic Acid Level 2.45*H Lactic Acid Level Laboratory Tests Test 04/01/20 18:35 Lactic Acid Level 2.45 MMOL/L (0.50-2.00) *H Progress/Results/Core Measures Suspected Sepsis Recent Fever Within 48 Hours: No Infection Criteria Present: None New/Unexplained Altered Menta: No Sepsis Screen: No Definite Risk SIRS Temperature: Pulse: 112 Respiratory Rate: 13 Laboratory Tests 04/01/20 18:35: White Blood Count 7.3 Blood Pressure 140 /98 Mean: 112 04/01/20 18:35: Lactic Acid Level 2.45*H Laboratory Tests 04/01/20 18:35: Creatinine 0.78, INR Comment 1.0, Platelet Count 245, Total Bilirubin 0.3 Results/Orders Lab Results Laboratory Tests Test 04/01/20 18:35 04/01/20 18:45 04/01/20 19:15 Range/Units White Blood Count 7.3 4.3-11.0 10^3/uL Red Blood Count 5.52 H 3.80-5.11 10^6/uL Hemoglobin 14.2 11.5-16.0 g/dL Hematocrit 45 35-52 % Mean Corpuscular Volume 81 80-99 fL Mean Corpuscular Hemoglobin 26 25-34 pg Mean Corpuscular Hemoglobin Concent 32 32-36 g/dL Red Cell Distribution Width 14.1 10.0-14.5 % Platelet Count 245 130-400 10^3/uL Mean Platelet Volume 9.5 9.0-12.2 fL Immature Granulocyte % (Auto) 0 % Neutrophils (%) (Auto) 78 H 42-75 % Lymphocytes (%) (Auto) 16 12-44 % Monocytes (%) (Auto) 5 0-12 % Eosinophils (%) (Auto) 0 0-10 % Basophils (%) (Auto) 0 0-10 % Neutrophils # (Auto) 5.7 1.8-7.8 10^3/uL Lymphocytes # (Auto) 1.2 1.0-4.0 10^3/uL Monocytes # (Auto) 0.4 0.0-1.0 10^3/uL Eosinophils # (Auto) 0.0 0.0-0.3 10^3/uL Basophils # (Auto) 0.0 0.0-0.1 10^3/uL Immature Granulocyte # (Auto) 0.0 0.0-0.1 10^3/uL Prothrombin Time 13.2 12.2-14.7 SEC INR Comment 1.0 0.8-1.4 Activated Partial Thromboplast Time 27 24-35 SEC Sodium Level 140 135-145 MMOL/L Potassium Level 4.4 3.6-5.0 MMOL/L Chloride Level 107 98-107 MMOL/L Carbon Dioxide Level 20 L 21-32 MMOL/L Anion Gap 13 5-14 MMOL/L Blood Urea Nitrogen 15 7-18 MG/DL Creatinine 0.78 0.60-1.30 MG/DL Estimat Glomerular Filtration Rate > 60 BUN/Creatinine Ratio 19 Glucose Level 183 H 70-105 MG/DL Lactic Acid Level 2.45 *H 0.50-2.00 MMOL/L Calcium Level 8.4 L 8.5-10.1 MG/DL Corrected Calcium 8.6 8.5-10.1 MG/DL Magnesium Level 1.8 1.6-2.4 MG/DL Total Bilirubin 0.3 0.1-1.0 MG/DL Aspartate Amino Transf (AST/SGOT) 38 H 5-34 U/L Alanine Aminotransferase (ALT/SGPT) 53 0-55 U/L Alkaline Phosphatase 84 40-136 U/L Troponin I < 0.028 <0.028 NG/ML B-Type Natriuretic Peptide 29.2 <100.0 PG/ML Total Protein 7.8 6.4-8.2 GM/DL Albumin 3.8 3.2-4.5 GM/DL Procalcitonin 0.04 <0.10 NG/ML Serum Test, Qualitative NEGATIVE NEGATIVE Blood Gas Puncture Site RIGHT RADIAL Blood Gas Patient Temperature 36.4 Arterial Blood pH 7.43 7.37-7.43 Arterial Blood Partial Pressure CO2 33 L 35-45 MMHG Arterial Blood Partial Pressure O2 69 L 79-93 MMHG Arterial Blood HCO3 22 L 23-27 MMOL/L Arterial Blood Total CO2 32.6 H 21.0-31.0 MMOL/L Arterial Blood Oxygen Saturation 94 94-100 % Arterial Blood Base Excess -2.1 -2.5-2.5 MMOL/L Ori Test YES-POS Blood Gas Ventilator Setting NO Blood Gas Inspired Oxygen RA Urine Color DAVID H Urine Clarity CLEAR Urine pH 6.0 5-9 Urine Specific [place] 1.025 H 1.016-1.022 Urine Protein TRACE H NEGATIVE Urine Glucose (UA) NEGATIVE NEGATIVE Urine Ketones NEGATIVE NEGATIVE Urine Nitrite NEGATIVE NEGATIVE Urine Bilirubin NEGATIVE NEGATIVE Urine Urobilinogen 0.2 < = 1.0 MG/DL Urine Leukocyte Esterase NEGATIVE NEGATIVE Urine RBC (Auto) NEGATIVE NEGATIVE Urine RBC NONE /HPF Urine WBC NONE /HPF Urine Crystals PRESENT H /LPF Urine Bacteria NEGATIVE /HPF Urine Casts NONE /LPF Urine Mucus NEGATIVE /LPF Urine Culture Indicated NO Micro Results Microbiology 04/01/20 Influenza Types A,B Antigen (PIERRE) - Final, Complete My Orders Orders - KAI DEUTSCH DO Ed Iv/Invasive Line Start (04/01/20 18:35) Ekg Tracing (04/01/20 18:35) O2 (04/01/20 18:35) Monitor-Rhythm Ecg Trace Only (04/01/20 18:35) Arterial Blood Gas (04/01/20 18:35) BNP (04/01/20 18:35) Cbc With Automated Diff (04/01/20 18:35) Comprehensive Metabolic Panel (04/01/20 18:35) Lactic Acid Analyzer (04/01/20 18:35) Magnesium (04/01/20 18:35) Procalcitonin (Pct) (04/01/20 18:35) Protime With Inr (04/01/20 18:35) Partial Thromboplastin Time (04/01/20 18:35) Blood Culture (04/01/20 18:35) Influenza A And B Antigens (04/01/20 18:35) Troponin I (04/01/20 18:35) Chest 1 View, Ap/Pa Only (04/01/20 18:35) Dexamethasone Injection (Decadron Injec (04/01/20 18:45) Albuterol/Ipratropium Inhaler (Combivent (04/01/20 21:00) Rt Request For Service (04/01/20 18:43) Fluticasone/Salmeterol 115/21 (Advair Hf (04/01/20 21:00) Hcg,Qualitative Serum (04/01/20 19:13) Ua Culture If Indicated (04/01/20 19:13) Ct Angio Chest W (04/01/20 19:16) Iohexol Injection (Omnipaque 350 Mg/Ml 1 (04/01/20 19:30) Received Contrast (Hold Metformin- Contr (04/01/20 19:30) Ns (Ivpb) (Sodium Chloride 0.9% Ivpb Bag (04/01/20 19:30) Arterial Blood Gas (04/01/20 18:45) Medications Given in ED Current Medications Medications Dose Ordered Sig/Veronique Route Start Time Stop Time Status Last Admin Dose Admin Albuterol/ Ipratropium 1 PUFF QID ONCE IH 04/01/20 21:00 04/01/20 21:01 04/01/20 18:57 4 GM Dexamethasone Sodium Phosphate 6 mg ONCE ONCE IV 04/01/20 18:45 04/01/20 18:46 DC 04/01/20 18:57 6 MG Iohexol 100 ml ONCE ONCE IV 04/01/20 19:30 04/01/20 19:31 DC 04/01/20 20:03 88 ML Salmeterol Xinafoate/ Fluticasone 2 PUFFS RTBID ONCE IH 04/01/20 21:00 04/01/20 21:01 04/01/20 18:57 2 PUFF Sodium Chloride 100 ml ONCE ONCE IV 04/01/20 19:30 04/01/20 19:31 DC 04/01/20 20:03 90 ML Vital Signs/I&O 04/01/20 04/01/20 04/01/20 18:22 18:35 18:35 Temp 36.4 Pulse 112 Resp 13 B/P (MAP) 140/98 (112) Pulse Ox 93 89 89 O2 Delivery Room Air Nasal Cannula O2 Flow Rate 2.00 Capillary Refill : Less Than 3 Seconds Blood Pressure Mean: 112 Progress Note : Progress Note PLACED IN ISOLATION ROOM PPE WORN AT ALL TIMES O2 SATS 93% ON ROOM AIR GIVEN DECADRON, COMBIVENT AND ADVAIR INHALER TREATMENTS ECG Initial ECG Impression Date: Apr 01, 2020 Initial ECG Impression Time: 19:03 Initial ECG Rate: 91 Initial ECG Rhythm: Normal Sinus Diagnostic Imaging Comments CXR--PER RADIOLOGIST REPORT AT 1913 FINDINGS: Single frontal view of the chest demonstrates normal heart size and pulmonary vascularity. The lungs are well aerated and clear. No large pleural effusion or pneumothorax is seen. The visualized osseous structures show no acute abnormalities. IMPRESSION: 1. No acute cardiopulmonary process. CT CHEST ANGIOGRAM--PER RADIOLOGIST REPORT AT 2019 IMPRESSION: 1. Interval increase in bilateral PE burden. Again, this is felt to be on the basis of new acute emboli, right greater than left. 2. Enlargement of the main pulmonary arterial trunk. This can be seen with pulmonary arterial hypertension. 3. Otherwise, no CTA evidence of right heart strain. Clinical correlation, however, is advised. 4. Scattered groundglass densities throughout the lungs. Appearance corresponds to clinical history of COVID positive patient. 5. More confluent airspace opacities within the posterior left lower lobe. Findings could be on the basis of more confluent infiltrate. Pulmonary infarct may have a similar appearance. Reviewed: Reviewed by Me Departure Departure-Patient Inst. Referrals: ANABEL TANG DO (PCP/Family) Primary Care Physician KAI DEUTSCH DO Apr 01, 2020 19:13
[2020-04-01 19:21] LABS: BILIRUBIN,URINE NEGATIVE (NEGATIVE); CLARITY,URINE CLEAR; COLOR,URINE AMBER; GLUCOSE, URINE (UA) NEGATIVE (NEGATIVE); KETONES,URINE NEGATIVE (NEGATIVE); LEUKOCYTE ESTERASE ,URINE NEGATIVE (NEGATIVE); NITRITE,URINE NEGATIVE (NEGATIVE); PROTEIN,URINE TRACE (NEGATIVE)
[2020-04-01] MEDS ORDERED: NS 100 ML (IVPB) BAG IV ONE (19:30)
[2020-04-01] MEDS ORDERED: IOHEXOL 350 MG/ML 100 ML (OMNIPAQUE 350) VIAL IV ONE (19:30)
[2020-04-01] MEDS ORDERED: HOLD METFORMIN - RECEIVED CONTRAST 20 ML VIAL IV SCH (19:30)
[2020-04-01 19:35] LABS: BACTERIA,URINE NEGATIVE /HPF
[2020-04-01 19:52] LABS: ABG BASE EXCESS -2.1 MMOL/L (-2.5-2.5); ABG OXYGEN SATURATION 94 % (94-100); ABG PCO2 33 MMHG (35-45); ABG PH 7.43 (7.37-7.43); ABG PO2 69 MMHG (79-93); ABG TCO2 32.6 MMOL/L (21.0-31.0)
[2020-04-01 19:53] LABS: ALLENS TEST YES-POS; INSPIRED O2 RA; PATIENT TEMP 36.4; VENTILATOR NO
--- NOTE | 2020-04-01 20:12 | Diagnostic Imaging Report ---
PROCEDURE: CT angiography of the chest with contrast. TECHNIQUE: Multiple contiguous axial images were obtained through the chest after uneventful bolus administration of intravenous contrast. 3D reconstructed CTA MIP acquisitions were also performed. Auto Exposure Controls were utilized during the CT exam to meet ALARA standards for radiation dose reduction. INDICATION: Shortness of air. History of COVID pneumonia. COMPARISON: 08/23/2019 FINDINGS: Since the previous exam, there has been interval increase in pulmonary embolus burden. This is felt to be on the basis of new acute emboli. There is moderate thrombus burden of the right pulmonary arteries with thrombus extending from the right main pulmonary artery into the lobar and segmental branches. Mild clot burden is noted on the left primarily with thrombus in the segmental and subsegmental branches. Main portal arterial trunk is enlarged. It measures 3.4 cm in diameter. Interventricular septum is not deviated to the left. There is no significant reflux of contrast into the IVC nor hepatic veins. Heart size is within normal limits. There is no large pericardial effusion. No pathologically enlarged or morphologically abnormal adenopathy is seen within the mediastinum, tatiana, nor axilla. Evaluation of the lung dodson demonstrates mild scattered groundglass densities bilaterally. There are more confluent airspace opacities within the posterior margins of the left lower lobe. No large effusion or pneumothorax is seen. Note is made of moderate image degradation secondary to motion artifact. Pulmonary nodule may be obscured. Osseous structures show age-related degenerative changes. No acute bony abnormalities are seen. Included portions of the upper abdomen show no additional acute abnormalities. IMPRESSION: 1. Interval increase in bilateral PE burden. Again, this is felt to be on the basis of new acute emboli, right greater than left. 2. Enlargement of the main pulmonary arterial trunk. This can be seen with pulmonary arterial hypertension. 3. Otherwise, no CTA evidence of right heart strain. Clinical correlation, however, is advised. 4. Scattered groundglass densities throughout the lungs. Appearance corresponds to clinical history of COVID positive patient. 5. More confluent airspace opacities within the posterior left lower lobe. Findings could be on the basis of more confluent infiltrate. Pulmonary infarct may have a similar appearance. Dictated by: Dictated on workstation # [id number]
[2020-04-01] MEDS ORDERED: ENOXAPARIN 80 MG/0.8 ML (LOVENOX) SYR SC ONE ×2 (20:30)
[2020-04-01] MEDS ORDERED: PIPERACILLIN/TAZO 4.5 GM VIAL (ZOSYN) IV ONE (20:37)
[2020-04-01] MEDS ORDERED: PIPERACILLIN/TAZOBACTAM (BULK) 4.5 GM in NS (IVPB) 100 ML IV ONE (20:45)
[2020-04-01] MEDS ORDERED: ALBUTEROL/IPRATROP (COMBIVENT RESPIMAT) 4 GM INHALER IH ONE (21:00)
[2020-04-01] MEDS ORDERED: ADVAIR HFA 115/21 MCG INHALER 8 GM IH ONE (21:00)
[2020-04-01 22:33] VITALS: BP 134/87
[2020-04-01] MEDS ORDERED: ONDANSETRON 4 MG/2 ML (SDV) Z0FRAN IV PRN (23:00)
[2020-04-01] MEDS: APIXABAN 5 MG (ELIQUIS) TABLET PO SCH (23:37)
[2020-04-01] MEDS: ACETAMINOPHEN 500 MG TAB (TYLENOL) PO PRN (23:37)
[2020-04-01] MEDS: NS IV 1000 ML 1,000 ML IV SCH (23:38)
[2020-04-02] VITALS (8 sets, daily range): BP systolic 116–182; BP diastolic 58–106
[2020-04-02] MEDS ORDERED: PIPERACILLIN/TAZO 4.5 GM VIAL (ZOSYN) IV ONE (03:01)
[2020-04-02] MEDS ORDERED: NS (IVPB) 100 ML ONE (03:01)
[2020-04-02] MEDS: PIPERACILLIN/TAZO 4.5 GM/NS 100 ML IV SCH ×6 (03:44→20:11)
[2020-04-02 06:20] LABS: BASOPHILS % (AUTO) 0 % (0-10); EOSINOPHILS % (AUTO) 0 % (0-10); HEMATOCRIT 47 % (35-52); HEMOGLOBIN 14.4 g/dL (11.5-16.0); LYMPHOCYTES # (AUTO) 1.7 10^3/uL (1.0-4.0); LYMPHOCYTES % (AUTO) 27 % (12-44); MEAN CORPUSCULAR HEMOGLOBIN 26 pg (25-34); MEAN CORPUSCULAR HGB CONC 31 g/dL (32-36); MEAN CORPUSCULAR VOLUME 85 fL (80-99); MEAN PLATELET VOLUME 9.6 fL (9.0-12.2); MONOCYTES # (AUTO) 0.4 10^3/uL (0.0-1.0); MONOCYTES % (AUTO) 7 % (0-12); NEUTROPHILS # (AUTO) 4.3 10^3/uL (1.8-7.8); NEUTROPHILS % (AUTO) 66 % (42-75); PLATELET COUNT 228 10^3/uL (130-400); WHITE BLOOD COUNT 6.5 10^3/uL (4.3-11.0)
[2020-04-02 06:35] LABS: ALBUMIN 3.6 GM/DL (3.2-4.5); CHLORIDE 106 MMOL/L (98-107); POTASSIUM 4.3 MMOL/L (3.6-5.0); SODIUM 138 MMOL/L (135-145)
[2020-04-02 06:36] LABS: CALCIUM 8.6 MG/DL (8.5-10.1)
[2020-04-02 06:37] LABS: GLUCOSE 114 MG/DL (70-105)
[2020-04-02 06:38] LABS: TOTAL PROTEIN 7.7 GM/DL (6.4-8.2)
[2020-04-02 06:39] LABS: BILIRUBIN,TOTAL 0.4 MG/DL (0.1-1.0); CARBON DIOXIDE 21 MMOL/L (21-32)
[2020-04-02 06:41] LABS: ALKALINE PHOSPHATASE 88 U/L (40-136); CREATININE SERUM 0.76 MG/DL (0.60-1.30); GFR ESTIMATED > 60
[2020-04-02 06:42] LABS: BUN/CREATININE RATIO 22
[2020-04-02 06:44] LABS: ALANINE AMINOTRANSFERASE 43 U/L (0-55)
[2020-04-02] MEDS: inSUlin ASPART (NovoLOG) 1 UNIT/0.01 ML (CHARGE PER UNIT) SC SCH ×4 (06:48→20:11)
[2020-04-02] MEDS ORDERED: FAMOTIDINE 40 MG (PEPCID) TABLET PO SCH (09:00)
[2020-04-02] MEDS: APIXABAN 5 MG (ELIQUIS) TABLET PO SCH ×2 (09:15→20:11)
[2020-04-02] MEDS: FAMOTIDINE 20 MG (PEPCID) TABLET PO SCH (09:15)
[2020-04-02] MEDS ORDERED: ALBUTEROL/IPRATROP (COMBIVENT RESPIMAT) 4 GM INHALER IH PRN (12:45)
[2020-04-02] MEDS ORDERED: ONDA-105 PO (13:01)
[2020-04-02] MEDS ORDERED: ZINC50TA58 PO (13:01)
[2020-04-02] MEDS ORDERED: CALC-250 PO (13:01)
[2020-04-02] MEDS ORDERED: CYCL10TA9 PO (13:01)
[2020-04-02] MEDS ORDERED: CHOL100045 PO (13:01)
[2020-04-02] MEDS ORDERED: ASCO500C17 PO (13:01)
[2020-04-02] MEDS ORDERED: FAMO-144 PO (13:01)
[2020-04-02] MEDS ORDERED: POTA99TA21 PO (13:01)
--- NOTE | 2020-04-02 13:28 | History & Physical-Hospitalist ---
History of Present Illness HPI/Chief Complaint Pt is a 49yoCF with a PMH pulmonary emboli and pneumonia who presented to the ER due to hypoxia. She was diagnosed with COVID on 03/26 and symptoms started on 03/24. She was checking her oxygen at home and it was around 93% so her PCP advised her to seek care in the ER. She complains of headache, body aches, nausea, vomiting, loss of appetite and taste. She does report feeling better now. She was found to have bilateral pulmonary embolism and was admitted for hypoxia from that and COVID. Source: patient Date Seen 04/02/20 Time Seen by a Provider: 15:29 Attending Physician Prateek Sloan DO PCP Prateek Sloan DO Referring Physician Date of Admission Apr 01, 2020 at 20:20 Home Medications & Allergies Home Medications Reviewed patient Home Medication Reconciliation performed by pharmacy medication reconciliations reliability technician and/or nursing. Patients Allergies have been reviewed. Allergies Allergies Coded Allergies Cephalosporins (Verified Allergy, Intermediate, HIVES, 04/25/19) Past Jahcfsz-Whhmbk-Qdqtwm Hx Past Med/Social Hx: Reviewed and Corrections made Patient Social History Alcohol Use: Rarely Uses Recreational Drug Use: No Smoking Status: Never a Smoker 2nd Hand Smoke Exposure: No Recent Foreign Travel: No Contact w/other who traveled: No Recent Hopitalizations: No Recent Infectious Disease Expo: No Immunizations Up To Date Tetanus Booster (TDap): Unknown Seasonal Allergies Seasonal Allergies: No Past Medical History Surgeries: Abdominal, Gallbladder, Orthopedic Currently Using CPAP: No Currently Using BIPAP: No Reproductive: No Female Reproductive Disorders: Denies Gastrointestinal: Gall Bladder Disease Musculoskeletal: Fractures History of Blood Disorders: Yes (BILATERAL P.E.'S 08/2019) Adverse Reaction to Blood Alfredo: Yes (WITH SURGERY) Family History Patient reports no known family medical history. No Pertinent Family Hx PT DENIES BEING DIABETIC, BUT IS ON SAXENDA PT DENIES HAVING ANY MENTAL HEALTH/PSYCH ISSUES, BUT STATES SHE IS ON ADDERALL "TO HELP LYMPHATICS" Review of Systems Constitutional: fever, malaise EENTM: no symptoms reported Respiratory: dyspnea on exertion, short of breath Gastrointestinal: diarrhea, loss of appetite, nausea, vomiting Genitourinary: no symptoms reported Musculoskeletal: muscle pain, muscle weakness Skin: no symptoms reported Psychiatric/Neurological: Headache Physical Exam Physical Exam Vital Signs Vital Signs - First Documented 04/01/20 04/02/20 18:22 12:30 Temp 36.4 Pulse 112 Resp 13 B/P (MAP) 140/98 (112) Pulse Ox 93 O2 Delivery Room Air FiO2 21 Capillary Refill : Less Than 3 Seconds Height, Weight, BMI Height: 5'6.50" Weight: 336lbs. 0.0oz. 152.636453vn; 50.46 BMI Method: General Appearance: No Apparent Distress, WD/WN, Obese HEENT: PERRL/EOMI, Moist Mucous Membranes; No Scleral Icterus (L), No Scleral Icterus (R) Neck: Normal Inspection, Supple Respiratory: Lungs Clear, No Accessory Muscle Use, No Respiratory Distress Cardiovascular: Regular Rate, Rhythm, No JVD, No Murmur Gastrointestinal: Normal Bowel Sounds, Non Tender, Soft Extremity: Normal Capillary Refill, Normal Inspection, No Calf Tenderness, No Pedal Edema Neurologic/Psychiatric: Alert, Oriented x3, Normal Mood/Affect Skin: Normal Color, Warm/Dry Results Results/Procedures Labs Laboratory Tests 04/01/20 18:35 04/02/20 05:59 Patient resulted labs reviewed. Imaging: Reviewed Imaging Report [facility] [place], [place] NAME: BO CARBAJAL [facility] REC#: [id number] PT STATUS: ADM IN : 1970 PHYSICIAN: KAI DEUTSCH DO ADMIT DATE: 04/01/20 Signed Date of Exam:04/01/20 CHEST 1 VIEW, AP/PA ONLY INDICATION: DYSPNEA, COVID+ COMPARISON: 08/16/2019 FINDINGS: Single frontal view of the chest demonstrates normal heart size and pulmonary vascularity. The lungs are well aerated and clear. No large pleural effusion or pneumothorax is seen. The visualized osseous structures show no acute abnormalities. IMPRESSION: 1. No acute cardiopulmonary process. Dictated by: Dictated on workstation # [id number] Dict: 04/01/20 1909 Trans: 04/02/20 0853 [facility] [id number] Interpreted by: MARIAN QUEEN MD Electronically signed by: MARIAN QUEEN MD 04/02/20 0853 [facility] [place], [place] NAME: BO CARBAJAL [facility] REC#: [id number] PT STATUS: ADM IN : 1970 PHYSICIAN: KAI DEUTSCH DO ADMIT DATE: 04/01/20 Signed Date of Exam:04/01/20 CT ANGIO CHEST W PROCEDURE: CT angiography of the chest with contrast. TECHNIQUE: Multiple contiguous axial images were obtained through the chest after uneventful bolus administration of intravenous contrast. 3D reconstructed CTA MIP acquisitions were also performed. Auto Exposure Controls were utilized during the CT exam to meet ALARA standards for radiation dose reduction. INDICATION: Shortness of air. History of COVID pneumonia. COMPARISON: 08/23/2019 FINDINGS: Since the previous exam, there has been interval increase in pulmonary embolus burden. This is felt to be on the basis of new acute emboli. There is moderate thrombus burden of the right pulmonary arteries with thrombus extending from the right main pulmonary artery into the lobar and segmental branches. Mild clot burden is noted on the left primarily with thrombus in the segmental and subsegmental branches. Main portal arterial trunk is enlarged. It measures 3.4 cm in diameter. Interventricular septum is not deviated to the left. There is no significant reflux of contrast into the IVC nor hepatic veins. Heart size is within normal limits. There is no large pericardial effusion. No pathologically enlarged or morphologically abnormal adenopathy is seen within the mediastinum, tatiana, nor axilla. Evaluation of the lung dodson demonstrates mild scattered groundglass densities bilaterally. There are more confluent airspace opacities within the posterior margins of the left lower lobe. No large effusion or pneumothorax is seen. Note is made of moderate image degradation secondary to motion artifact. Pulmonary nodule may be obscured. Osseous structures show age-related degenerative changes. No acute bony abnormalities are seen. Included portions of the upper abdomen show no additional acute abnormalities. IMPRESSION: 1. Interval increase in bilateral PE burden. Again, this is felt to be on the basis of new acute emboli, right greater than left. 2. Enlargement of the main pulmonary arterial trunk. This can be seen with pulmonary arterial hypertension. 3. Otherwise, no CTA evidence of right heart strain. Clinical correlation, however, is advised. 4. Scattered groundglass densities throughout the lungs. Appearance corresponds to clinical history of COVID positive patient. 5. More confluent airspace opacities within the posterior left lower lobe. Findings could be on the basis of more confluent infiltrate. Pulmonary infarct may have a similar appearance. Dictated by: Dictated on workstation # [id number] Dict: 04/01/201958 Trans: 04/02/20 0856 [facility] [id number] Interpreted by: MARIAN QUEEN MD Electronically signed by: MARIAN QUEEN MD 04/02/20 0856 Assessment/Plan Admission Diagnosis Acute hypoxic respiratory failure due to COVID19 Admission Status: Inpatient Order (span 2 midnights) Reason for Inpatient Admission: see below Assessment and Plan Acute hypoxic respiratory failure due to COVID19 Bilateral Pulmonary emboli Was mildly hypoxic over night but now on room air Continue on Eliquis Convalescent plasma ordered, EUA status discussed with patient, consents to treatment Not currently on oxygen so will defer Remdesivir for now Continue decadron MAT protocol IS Morbid obesity No acute needs, clinically significant as higher risk for complication from COVID DVT ppx: Eliquis as above Diagnosis/Problems Diagnosis/Problems (1) Acute respiratory failure Qualifiers: Respiratory failure complication: hypoxia Qualified Codes: J96.01 - Acute respiratory failure with hypoxia (2) COVID-19 Status: Acute (3) Obesity Status: Acute Qualifiers: Obesity type: unspecified obesity type Obesity classification: adult class 3 (BMI >= 40) Serious obesity comorbidity presence: without serious comorbidi ty Body mass index: BMI 50.0-59.9 Qualified Codes: E66.01 - Morbid (severe) obesity due to excess calories; Z68.43 - Body mass index (BMI) 50.0-59.9, adult (4) Pulmonary embolism Status: Acute Qualifiers: Pulmonary embolism type: other Chronicity: acute Acute cor pulmonale presence: without acute cor pulmonale Qualified Codes: I26.99 - Other pulmonary embolism without acute cor pulmonale Clinical Quality Measures DVT/VTE Risk/Contraindication: Risk Factor Score Per Nursin RFS Level Per Nursing on Admit: 4+=Very High Copy Copies To 1: PRATEEK SLOAN KATELYN M MD Apr 02, 2020 13:28
[2020-04-02] MEDS ORDERED: CNC1KV IM (13:57)
--- NOTE | 2020-04-02 13:58 | NUR ---
I SPOKE WITH THE PATIENT ON THE ROOM PHONE AND WENT THROUGH THE EXTERNAL MED HISTORY TO COMPLETE THE MED REC. PT IS FINISHED WITH ZITHROMAX AND IS NO LONGER TAKING DEXAMETHASONE. SAXENDA HASN'T BEEN FILLED SINCE 12/18/19 30DS. PATIENT SAID THAT SHE HAS BACK UP BOXES THAT SHE USES WHILE SHE'S WAITING FOR PRIOR AUTHORIZATION, IT CAN TAKE A REALLY LONG TIME. PATIENT STATES THAT SHE GETS VITAMIN B-12 SHOTS DAILY PRESCRIBED TO HER BY DR. TANG. I WAS UNABLE TO GET IN TOUCH WITH DR. TANG'S OFFICE. OTC: PEPCID VITAMIN D3 VITAMIN C ZINC POTASSIUM
--- NOTE | 2020-04-02 14:57 | NUR ---
"RD ASSESSMENT PMHx: pneumonia; PE; morbid obesity; PT INTERACTION: Note pt currently in COVID isolation per chart review. Note all diet information for nutrition assessment is per Tawny RN or per chart review. Tawny states current appetite appears poor. Note avg PO intake <25% x2meal, per chart review. Note recent issues with nausea, vomiting, and diarrhea, per ED note. Tawny states last BM was 04/01. Note pt not currnetly on bowel regimen per chart review. Note recent 8# wt loss x7mon, per chart review. Note unable to determine current level of DM management, and unable to determine recent HbA1c, per chart review. ABNORMAL NUTRITION-RELATED LAB VALUES LOW: HIGH: glu 114; Est. kcal needs: 7036-5575 kcal | 25-30 kcal/kg IBW, based on IBW of 61.4 kg (135#) Est. Pro needs: 49-61 g Pro | 0.8-1.0 g Pro/kg IBW PES STATEMENT: Inadequate oral intake (NI-2.1) related to loss of appetite, nausea, vomiting, and diarrhea, as evidenced by chart review, and avg PO intake <25% x2meal. INTERVENTION: Continue with current diet order of CHO 45g/m 3snack diet, with modifier of 2g Na restriction. Add Glucerna (vary) to meals TID, for increased kcal intake. Provides 220 kcal and 10 g Pro per serving. Did not offer diet education on DM management d/t isolation precautions. Will continue to follow and reassess as pt needs, intake, and status change. Malinda SNEED, MS RD LD [phone] cell"
[2020-04-02] MEDS ORDERED: NON-FORMULARY MEDICATION 1 EA EA (Ondansetron HCl 4 MG) PO PRN (15:45)
[2020-04-02] MEDS ORDERED: CYCLOBENZAPRINE 10 MG (FLEXERIL) TAB PO PRN (15:45)
[2020-04-02] MEDS ORDERED: NON-FORMULARY MEDICATION 1 EA EA (Promethazine HCl/Codeine (Prometh-Codein 6.25-10 mg/5 ml PO PRN (15:45)
[2020-04-02] MEDS ORDERED: PROMETHAZINE/ CODEINE SYRUP 5 ML UDC PO PRN (16:00)
[2020-04-02] MEDS ORDERED: ONDANSETRON 4 MG (ZOFRAN) ORAL DISSOLVE TAB PO PRN (16:00)
[2020-04-02] MEDS: ACETAMINOPHEN 500 MG TAB (TYLENOL) PO PRN (17:26)
[2020-04-02] MEDS: NS IV 1000 ML 1,000 ML IV SCH ×2 (17:27→19:46)
[2020-04-02] MEDS ORDERED: ALBUTEROL/IPRATROP (COMBIVENT RESPIMAT) 4 GM INHALER IH SCH (21:00)
[2020-04-02] MEDS ORDERED: LIRAGLUTIDE 0.6 MG SQ SCH (21:00)
[2020-04-03] VITALS (8 sets, daily range): BP systolic 121–139; BP diastolic 59–86
[2020-04-03] MEDS: PIPERACILLIN/TAZO 4.5 GM/NS 100 ML IV SCH ×4 (03:45→12:08)
[2020-04-03] MEDS: inSUlin ASPART (NovoLOG) 1 UNIT/0.01 ML (CHARGE PER UNIT) SC SCH ×2 (06:05→11:50)
[2020-04-03] MEDS ORDERED: KCL 8 MEQ (MICRO K) TABLET PO SCH (07:00)
[2020-04-03] MEDS ORDERED: ASCORBIC ACID (VIT C) 500 MG TABLET PO SCH (08:00)
[2020-04-03] MEDS ORDERED: ZINC SULFATE 220 MG CAPSULE PO SCH (08:00)
[2020-04-03] MEDS: FAMOTIDINE 20 MG (PEPCID) TABLET PO SCH (08:39)
[2020-04-03] MEDS: APIXABAN 5 MG (ELIQUIS) TABLET PO SCH (08:39)
[2020-04-03] MEDS ORDERED: NON-FORMULARY MEDICATION 1 EA EA (Ascorbic Acid (Vitamin C) 500 MG) PO SCH (09:00)
[2020-04-03] MEDS ORDERED: NON-FORMULARY MEDICATION 1 EA EA (Zinc 50 MG) PO SCH (09:00)
[2020-04-03] MEDS ORDERED: FAMOTIDINE 10 MG PO SCH (09:00)
[2020-04-03] MEDS ORDERED: NON-FORMULARY MEDICATION 1 EA EA (Potassium Gluconate (Potassium) 99 MG) PO SCH (09:00)
[2020-04-03] MEDS ORDERED: VITAMIN D3 125 MCG (5,000 UNITS) CAPSULE PO SCH (09:00)
[2020-04-03] MEDS: ACETAMINOPHEN 500 MG TAB (TYLENOL) PO PRN (09:32)
--- NOTE | 2020-04-03 10:46 | Discharge Summary ---
Diagnosis/Chief Complaint Date of Admission Apr 01, 2020 at 20:20 Date of Discharge Admission Diagnosis Acute hypoxic respiratory failure due to COVID19 Primary Care Anabel Sloan DO Discharge Diagnosis (1) Acute respiratory failure (2) COVID-19 Status: Acute (3) Obesity Status: Acute (4) Pulmonary embolism Status: Acute Discharge Summary Discharge Physical Exam Allergies: Coded Allergies: Cephalosporins (Verified Allergy, Intermediate, HIVES, 04/25/19) Vitals & I&Os Vital Signs Date Time Temp Pulse Resp B/P (MAP) Pulse Ox O2 Delivery O2 Flow Rate FiO2 04/03/20 08:00 36.0 61 16 125/76 (92) 94 Room Air 04/02/20 12:30 21 04/01/20 22:07 2.00 General Appearance: No Apparent Distress Cardiovascular: Regular Rate, Rhythm, No Murmur Neurologic/Psychiatric: Alert, Oriented x3; No Abnormal diesel dinkey engineer II-XII Hospital Course patient is a 49-year-old female with a history of pulmonary embolism who was admitted due to recurrent bilateral pulmonary emboli in the setting of COVID-19. She was diagnosed with COVID roughly 10 days ago and continued to be short of breath and was mildly hypoxic causing her to present to the emergency room. CTA was done which revealed bilateral pulmonary emboli. She was intermittently on oxygen but was quickly taken off. She was started on Eliquis to treat the pulmonary emboli. She remained off oxygen and was able to be discharged home in stable condition to follow up with her PCP. Labs (last 24 hrs) Laboratory Tests 04/02/20 12:27: Glucometer 105 04/02/20 16:46: Glucometer 119H 04/02/20 20:11: Glucometer 129H 04/03/20 05:56: Glucometer 77 Microbiology 04/01/20 Blood Culture - Preliminary, Resulted No growth 04/01/20 Influenza Types A,B Antigen (PIERRE) - Final, Complete Patient resulted labs reviewed. Pending Labs Laboratory Tests 04/03/20 05:56: Glucometer 77 Imaging: Reviewed Imaging Report Discussion & Recommendations Discharge Planning: >30 minutes discharge planning Discharge Home Medications: Active Scripts Active Reported Cyanocobalamin Injection (Cyanocobalamin) 1,000 Mcg/Ml Inj 1,000 Mcg IM DAILY Potassium (Potassium Gluconate) 99 Mg Tablet 99 Mg PO DAILY Zinc 50 Mg Tablet 50 Mg PO DAILY Vitamin C (Ascorbic Acid) 500 Mg Capsule 500 Mg PO DAILY Vitamin D3 (Cholecalciferol (Vitamin D3)) 125 Mcg Tablet 125 Mcg PO DAILY Acid Black And White Printer Operator (FAMOTIDINE) (Famotidine) 10 Mg Tablet 10 Mg PO DAILY Cyclobenzaprine HCl 10 Mg Tablet 10 Mg PO HS PRN Ondansetron HCl 4 Mg Tablet 4 Mg PO Q6H PRN Amphetamine Salts 10 mg Tablet (Dextroamphetamine/Amphetamine) 10 Mg Tablet 20 Mg PO DAILY PRN TAKES 2 (10MG) TABLETS Prometh-Codein 6.25-10 mg/5 ml (Promethazine HCl/Codeine) 5 Ml Syrup 5 Ml PO Q4H PRN Saxenda (Liraglutide) 3 Mg/0.5 Ml Pen.injctr 0.6 Mg SQ BID Instructions to patient/family Please see electronic discharge instructions given to patient. Clinical Quality Measures DVT/VTE Risk/Contraindication: Risk Factor Score Per Nursin RFS Level Per Nursing on Admit: 4+=Very High Copy Copies To 1: ANABEL SLOAN DO Problem Qualifiers (1) Acute respiratory failure: Respiratory failure complication: hypoxia Qualified Codes: J96.01 - Acute respiratory failure with hypoxia (2) Obesity: Obesity type: unspecified obesity type Obesity classification: adult class 3 (BMI >= 40) Serious obesity comorbidity presence: without serious comorbidity Body mass index: BMI 50.0-59.9 Qualified Codes: E66.01 - Morbid (severe) obesity due to excess calories; Z68.43 - Body mass index (BMI) 50.0-59.9, adult (3) Pulmonary embolism: Pulmonary embolism type: other Chronicity: acute Acute cor pulmonale pres ence: without acute cor pulmonale Qualified Codes: I26.99 - Other pulmonary embolism without acute cor pulmonale ДМИТРИЙ BARTON MD Apr 03, 2020 10:46
[2020-04-03] MEDS ORDERED: APIX5TAB PO (11:02)
--- NOTE | 2020-04-03 11:04 | Discharge Inst-Simple/Standard ---
Discharge Inst-Standard Patient Instructions/Follow Up Plan of Care/Instructions/FU: Please continue to take your medications as written and finish your course of decadron that you have at home. Please take your Eliquis as written. Activity as Tolerated: Yes Discharge Diet: No Restrictions Return to The Hospital For: Chest pain, shortness of breath, oxygen saturations <90, fevers, chills, if you feel you are getting worse. ДМИТРИЙ BARTON MD Apr 03, 2020 11:04
== END 2020-04-03 14:00 | disposition home or self-care (01) | DRG 177 ==
LOC: EDUNIT# 18:12 → ER 18:14 → 4TH 20:20
PROVIDERS: ADMIT Internal Medicine; ATTEND Internal Medicine
PROC: XW13325 Transfusion of Convalescent Plasma (Nonautologous) into Peripheral Vein, Percutaneous Approach, New Technology Group 5 (ICD-10-PCS; principal; 2020-04-03)
DX: U07.1 COVID-19 (principal); J96.01 Acute respiratory failure with hypoxia; I26.99 Other pulmonary embolism without acute cor pulmonale; Z68.43 Body mass index [BMI] 50.0-59.9, adult; E66.01 Morbid (severe) obesity due to excess calories; Z87.01 Personal history of pneumonia (recurrent); Z86.711 Personal history of pulmonary embolism; Z98.84 Bariatric surgery status; Z73.0 Burn-out
CPT/HCPCS: 36415; 71045; 71275; 80053; 81000; 82805; 82962; 83605; 83735; 83880; 84145; 84484; 84703; 85025; 85379; 85610; 85730; 86900; 86901; 87040; 87804; 93005; 93041; 94640; 94760

== ENCOUNTER 2020-07-15 21:55 | Emergency (ER) | payer BC ==
[~2020-07-15] VITALS: Ht 170.2 cm; Wt 167.4 kg
[~2020-07-15 21:55] MED LIST changes: +ASCO500C17 PO; +CALC-250 PO; +CHOL100045 PO; +CNC1KV IM; +CYCL10TA9 PO; +FAMO-144 PO; +ONDA-105 PO; +POTA99TA21 PO; +ZINC50TA58 PO
[2020-07-15 22:52] LABS: BASOPHILS % (AUTO) 0 % (0-10); EOSINOPHILS # (AUTO) 0.1 10^3/uL (0.0-0.3); EOSINOPHILS % (AUTO) 1 % (0-10); HEMATOCRIT 40 % (35-52); HEMOGLOBIN 12.4 g/dL (11.5-16.0); LYMPHOCYTES # (AUTO) 2.5 10^3/uL (1.0-4.0); LYMPHOCYTES % (AUTO) 34 % (12-44); MEAN CORPUSCULAR HEMOGLOBIN 26 pg (25-34); MEAN CORPUSCULAR HGB CONC 31 g/dL (32-36); MEAN CORPUSCULAR VOLUME 85 fL (80-99); MEAN PLATELET VOLUME 10.2 fL (9.0-12.2); MONOCYTES # (AUTO) 0.5 10^3/uL (0.0-1.0); MONOCYTES % (AUTO) 7 % (0-12); NEUTROPHILS # (AUTO) 4.2 10^3/uL (1.8-7.8); NEUTROPHILS % (AUTO) 57 % (42-75); PLATELET COUNT 374 10^3/uL (130-400); WHITE BLOOD COUNT 7.4 10^3/uL (4.3-11.0)
[2020-07-15 23:09] LABS: ALBUMIN 3.6 GM/DL (3.2-4.5); CHLORIDE 105 MMOL/L (98-107); ERYTHROCYTE SEDIMENTATION RATE 37 MM/HR (0-20); SODIUM 137 MMOL/L (135-145)
[2020-07-15 23:10] LABS: CALCIUM 8.5 MG/DL (8.5-10.1)
[2020-07-15 23:11] LABS: GLUCOSE 80 MG/DL (70-105); PROTHROMBIN TIME PATIENT 13.6 SEC (12.2-14.7)
[2020-07-15 23:12] LABS: TOTAL PROTEIN 7.2 GM/DL (6.4-8.2)
[2020-07-15 23:13] LABS: BILIRUBIN,TOTAL 0.3 MG/DL (0.1-1.0); CARBON DIOXIDE 21 MMOL/L (21-32)
[2020-07-15 23:15] LABS: ALKALINE PHOSPHATASE 97 U/L (40-136); CREATININE SERUM 0.71 MG/DL (0.60-1.30); GFR ESTIMATED > 60
[2020-07-15 23:16] LABS: BUN/CREATININE RATIO 21
[2020-07-15 23:18] LABS: ALANINE AMINOTRANSFERASE 22 U/L (0-55); CREATINE KINASE 37 U/L (29-168); MAGNESIUM 2.2 MG/DL (1.6-2.4)
[2020-07-15 23:25] LABS: CREATINE KINASE MB 0.7 NG/ML (<6.6)
[2020-07-15] MEDS ORDERED: IOHEXOL 350 MG/ML 100 ML (OMNIPAQUE 350) VIAL IV ONE (23:45)
[2020-07-15] MEDS ORDERED: HOLD METFORMIN - RECEIVED CONTRAST 20 ML VIAL IV SCH (23:45)
[2020-07-15] MEDS ORDERED: NS 100 ML (IVPB) BAG IV ONE (23:45)
[2020-07-16] MEDS ORDERED: POTA20TA15 PO (01:11)
[2020-07-16] MEDS ORDERED: FURO-124 PO (01:11)
--- NOTE | 2020-07-16 01:11 | ED General ---
General Chief Complaint: Lower Extremity Stated Complaint: DX W/ PNEUMONIA/SOB/BILAT FEET DISCOLORATION Nursing Triage Note: PT AMBULATE TO ROOM 09 WITH C/O BILAT LEG SWELLING AND DISCOLORATION, TINGLING IN FEET, SOB. PT REPORTS BEING DX WITH PNEUMONIA X2 WEEKS. PT REPORTS COVID POS March. PT REPORTS HOME O2 AT NIGHT SINCE DX WITH COVID. PT REPORT HAVING AN APPT WITH PCP TOMORROW. Nursing Sepsis Screen: No Definite Risk Source of Information: Patient, Old Records History of Present Illness Date Seen by Provider: Jul 15, 2020 Time Seen by Provider: 22:08 Initial Comments PT ARRIVES VIA POV FROM HOME PT WITH MULTIPLE COMPLAINTS STATES SHE HAS BEEN SICK FOR THE LAST 3 WEEKS WITH FEVER AND SHORTNESS OF BREATH HAD TELEPHONE VISIT AND HAD LAB AND CXR WHICH SHOWED PNUEMONIA AND SHE WAS GIVEN RX FOR ZITHROMAX, WHICH SHE FINISHED 4-5 DAYS AGO PT STATES SHE HAS NOT HAD ANY FEVER FOR OVER A WEEK. COUGH HAS IMPROVED C/O RIGHT MID CHEST PAIN WITH DEEP BREATHS--ONGOING FOR THE PAST 2-3 WEEKS ALSO COMPLAINS OF SWELLING TO HER LEGS AND FEET FOR THE LAST 2-3 WEEKS, AND RED CIRCULAR PATCHES ON HER LOWER LEGS--STATES SHE HAS HAD THIS EVERY TIME SHE HAS HAD PNEUMONIA PT HAD COVID-19 INFECTION AND BILATERAL PULMONARY EMBOLI AND WAS ADMITTED 04/01/20-04/03/20. WAS DISMISSED HOME ON ELIQUIS AND DID NOT REQUIRE HOME O2 WHEN SHE WAS DISMISSED, BUT REPORTED TO NURSE THAT SHE NOW USES O2 AT BEDTIME. PT HAD PNEUMONIA IN APRIL OF 2019, AND HAD BILATERAL P.E.'S IN AUGUST OF 2019. SHE TOOK BLOOD THINNERS FOR SHORT PERIOD OF TIME AFTER THAT. PT DENIES ANY MISSED DOSES OF ELIQUIS SINCE SHE WAS PRESCRIBED IT IN MARCH. PT HAS AN APPOINTMENT WITH HER TOMORROW FOR THIS PROBLEM SYMPTOMS ARE NO DIFFERENT TONIGHT HAS NOT TAKEN ANYTHING FOR SYMPTOMS PCP: DR. TANG Allergies and Home Medications Allergies Coded Allergies: Cephalosporins (Verified Allergy, Intermediate, HIVES, 04/25/19) Home Medications Apixaban 5 Mg Tablet, 5 MG PO BID TAKE 2 TABLETS BID X 7 DAYS, THEN 1 TABLET BID Prescribed by: ДМИТРИЙ BARTON on 04/03/20 1102 Ascorbic Acid 500 Mg Capsule, 500 MG PO DAILY, (Reported) Cholecalciferol (Vitamin D3) 125 Mcg Tablet, 125 MCG PO DAILY, (Reported) Cyanocobalamin 1,000 Mcg/Ml Inj, 1,000 MCG IM DAILY, (Reported) Cyclobenzaprine HCl 10 Mg Tablet, 10 MG PO HS PRN for MUSCLE CRAMPS, (Reported) Dextroamphetamine/Amphetamine 10 Mg Tablet, 20 MG PO DAILY PRN for LYMPHATIC SYSTEM STIMULATION, (Reported) TAKES 2 (10MG) TABLETS Famotidine 10 Mg Tablet, 10 MG PO DAILY, (Reported) Furosemide 40 Mg Tablet, 40 MG PO DAILY Prescribed by: KAI DEUTSCH on 07/16/20110 Liraglutide 3 Mg/0.5 Ml Pen.injctr, 0.6 MG SQ BID, (Reported) Ondansetron HCl 4 Mg Tablet, 4 MG PO Q6H PRN for NAUSEA/VOMITING-1ST LINE, ( Reported) Potassium Chloride 20 Meq Tab.er.prt, 20 MEQ PO DAILY Prescribed by: KAI DEUTSCH on 07/16/20110 Potassium Gluconate 99 Mg Tablet, 99 MG PO DAILY, (Reported) Promethazine HCl/Codeine 5 Ml Syrup, 5 ML PO Q4H PRN for COUGH, (Reported) Zinc 50 Mg Tablet, 50 MG PO DAILY, (Reported) Patient Home Medication List Home Medication List Reviewed: Yes Review of Systems Review of Systems Constitutional: see HPI EENTM: No nose congestion, No throat pain Respiratory: see HPI Cardiovascular: see HPI Gastrointestinal: no symptoms reported Genitourinary: no symptoms reported Musculoskeletal: see HPI Skin: see HPI Psychiatric/Neurological: No Symptoms Reported Hematologic/Lymphatic: See HPI Immunological/Allergic: no symptoms reported Past Zueztmv-Juyndm-Rpohxm Hx Past Med/Social Hx: Reviewed and Corrections made Patient Social History Alcohol Use: Rarely Uses Smoking Status: Never a Smoker 2nd Hand Smoke Exposure: No Recent Infectious Disease Expo: No Recent Hopitalizations: No Immunizations Up To Date Tetanus Booster (TDap): Unknown Seasonal Allergies Seasonal Allergies: No Past Medical History Surgeries: Yes (GASTRIC SLEEVE, GASTRIC BYPASS 2011; ORIF RIGHT ANKLE/TIBIAL FX) Abdominal, Gallbladder, Orthopedic Respiratory: Yes (COVID-19 03/2020) Pneumonia, Pulmonary Embolism Currently Using CPAP: No Currently Using BIPAP: No Cardiac: No Neurological: No Reproductive Disorders: No Female Reproductive Disorders: Denies Genitourinary: No Gastrointestinal: Yes (GASTRIC SLEEVE AND GASTRIC BYPASS; CHOLECYSTECTOMY) Gall Bladder Disease Musculoskeletal: Yes (RIGHT ANKLE FX/ORIF) Fractures Endocrine: Yes (MORBID OBESITY) Cancer: No Psychosocial: Yes Anxiety, Depression Integumentary: No Blood Disorders: Yes (BILATERAL P.E.'S 08/2019) Adverse Reaction/Blood Tranf: Yes (WITH SURGERY) Family Medical History Patient reports no known family medical history. No Pertinent Family Hx PT DENIES BEING DIABETIC, BUT IS ON SAXENDA PT DENIES HAVING ANY MENTAL HEALTH/PSYCH ISSUES, BUT STATES SHE IS ON ADDERALL "TO HELP LYMPHATICS" Physical Exam Vital Signs Vital Signs - First Documented 07/15/20 07/16/20 22:03 01:13 Temp 36.8 Pulse 93 Resp 17 B/P (MAP) 145/83 (103) Pulse Ox 98 O2 Delivery Room Air Capillary Refill : Less Than 3 Seconds Height, Weight, BMI Height: 5'6.50" Weight: 336lbs. 0.0oz. 152.888407um; 57.00 BMI Method: General Appearance: No Apparent Distress, Obese (SUPERMORBIDLY OBESE. DOES NOT APPEAR TO BE IN ANY DISCOMFORT OR DISTRESS. ), Other (TALKS IN FULL SENTENCES, NO DYSPNEA, NO COUGH, DOES NOT APPEAR TO BE IN ANY DISCOMFORT OR DISTRESS. ) Neck: Normal Inspection Respiratory: Normal Breath Sounds, No Accessory Muscle Use, No Respiratory Distress Cardiovascular: Regular Rate, Rhythm, No Murmur Gastrointestinal: Non Tender, Soft Extremity: Normal Capillary Refill, Normal Range of Motion, Non Tender; No Calf Tenderness; Pedal Edema (2+ EDEMA TO LOWER LEGS AND ANKLES AND FEET.) Neurologic/Psychiatric: Alert, Oriented x3, No Motor/Sensory Deficits Skin: Normal Color, Warm/Dry, Other (BILATERAL LOWER LEGS HAVE A FEW DISCRETE ERYTHEMATOUS CIRCULAR PATCHES WITH CENTRAL CLEARING. VARIOUS SIZES--UP TO 2 CM IN DIAMETER) Focused Exam Lactate Level 07/15/20 22:30: Lactic Acid Level 0.96 Lactic Acid Level Laboratory Tests Test 07/15/20 22:30 Lactic Acid Level 0.96 MMOL/L (0.50-2.00) Progress/Results/Core Measures Suspected Sepsis Recent Fever Within 48 Hours: No Infection Criteria Present: None New/Unexplained Altered Menta: No Sepsis Screen: No Definite Risk SIRS Temperature: Pulse: 93 Respiratory Rate: 17 Laboratory Tests 07/15/20 22:30: White Blood Count 7.4 Blood Pressure 145 /83 Mean: 103 07/15/20 22:30: Lactic Acid Level 0.96 Laboratory Tests 07/15/20 22:30: Creatinine 0.71, INR Comment 1.0, Platelet Count 374, Total Bilirubin 0.3 Results/Orders Lab Results Laboratory Tests Test 07/15/20 22:30 Range/Units White Blood Count 7.4 4.3-11.0 10^3/uL Red Blood Count 4.70 3.80-5.11 10^6/uL Hemoglobin 12.4 11.5-16.0 g/dL Hematocrit 40 35-52 % Mean Corpuscular Volume 85 80-99 fL Mean Corpuscular Hemoglobin 26 25-34 pg Mean Corpuscular Hemoglobin Concent 31 L 32-36 g/dL Red Cell Distribution Width 14.2 10.0-14.5 % Platelet Count 374 130-400 10^3/uL Mean Platelet Volume 10.2 9.0-12.2 fL Immature Granulocyte % (Auto) 0 % Neutrophils (%) (Auto) 57 42-75 % Lymphocytes (%) (Auto) 34 12-44 % Monocytes (%) (Auto) 7 0-12 % Eosinophils (%) (Auto) 1 0-10 % Basophils (%) (Auto) 0 0-10 % Neutrophils # (Auto) 4.2 1.8-7.8 10^3/uL Lymphocytes # (Auto) 2.5 1.0-4.0 10^3/uL Monocytes # (Auto) 0.5 0.0-1.0 10^3/uL Eosinophils # (Auto) 0.1 0.0-0.3 10^3/uL Basophils # (Auto) 0.0 0.0-0.1 10^3/uL Immature Granulocyte # (Auto) 0.0 0.0-0.1 10^3/uL Erythrocyte Sedimentation Rate 37 H 0-20 MM/HR Prothrombin Time 13.6 12.2-14.7 SEC INR Comment 1.0 0.8-1.4 Activated Partial Thromboplast Time 32 24-35 SEC Sodium Level 137 135-145 MMOL/L Potassium Level 4.0 3.6-5.0 MMOL/L Chloride Level 105 98-107 MMOL/L Carbon Dioxide Level 21 21-32 MMOL/L Anion Gap 11 5-14 MMOL/L Blood Urea Nitrogen 15 7-18 MG/DL Creatinine 0.71 0.60-1.30 MG/DL Estimat Glomerular Filtration Rate > 60 BUN/Creatinine Ratio 21 Glucose Level 80 70-105 MG/DL Lactic Acid Level 0.96 0.50-2.00 MMOL/L Calcium Level 8.5 8.5-10.1 MG/DL Corrected Calcium 8.8 8.5-10.1 MG/DL Magnesium Level 2.2 1.6-2.4 MG/DL Total Bilirubin 0.3 0.1-1.0 MG/DL Aspartate Amino Transf (AST/SGOT) 25 5-34 U/L Alanine Aminotransferase (ALT/SGPT) 22 0-55 U/L Alkaline Phosphatase 97 40-136 U/L Total Creatine Kinase 37 29-168 U/L Creatine Kinase MB 0.7 <6.6 NG/ML Myoglobin 18.9 10.0-92.0 NG/ML Troponin I < 0.028 <0.028 NG/ML C-Reactive Protein High Sensitivity 2.28 H 0.00-0.50 MG/DL B-Type Natriuretic Peptide 18.8 <100.0 PG/ML Total Protein 7.2 6.4-8.2 GM/DL Albumin 3.6 3.2-4.5 GM/DL Procalcitonin 0.02 <0.10 NG/ML Serum Test, Qualitative NEGATIVE NEGATIVE Coronavirus 2019 (JOSUÉ) Negative Negative Micro Results Microbiology 07/15/20 Blood Culture - Preliminary, Resulted No growth 07/15/20 Influenza Types A,B Antigen (PIERRE) - Final, Complete 07/15/20 Blood Culture - Preliminary, Resulted No growth My Orders Orders - KAI DEUTSCH DO Ed Iv/Invasive Line Start (07/15/20 22:22) Ekg Tracing (07/15/20 22:22) Monitor-Rhythm Ecg Trace Only (07/15/20 22:22) BNP (07/15/20 22:22) Cbc With Automated Diff (07/15/20 22:22) Comprehensive Metabolic Panel (07/15/20 22:22) Creatine Kinase (07/15/20 22:22) Creatine Kinase Mb (07/15/20 22:22) Hs C Reactive Protein (07/15/20 22:22) Hcg,Qualitative Serum (07/15/20 22:22) Lactic Acid Analyzer (07/15/20 22:22) Magnesium (07/15/20 22:22) Procalcitonin (Pct) (07/15/20 22:22) Protime With Inr (07/15/20 22:22) Partial Thromboplastin Time (07/15/20 22:22) Blood Culture (07/15/20 22:22) Influenza A And B Antigens (07/15/20 22:22) Erythrocyte Sedimentation Rate (07/15/20 22:22) Myoglobin Serum (07/15/20 22:22) Troponin I (07/15/20 22:22) Ct Angio Chest W (07/15/20 22:22) Chest 1 View, Ap/Pa Only (07/15/20 22:22) Covid 19 Inhouse Test (07/15/20 23:28) Iohexol Injection (Omnipaque 350 Mg/Ml 1 (07/15/20 23:45) Received Contrast (Hold Metformin- Contr (07/15/20 23:45) Ns (Ivpb) (Sodium Chloride 0.9% Ivpb Bag (07/15/20 23:45) Medications Given in ED Vital Signs/I&O 07/15/20 07/16/20 22:03 01:13 Temp 36.8 36.5 Pulse 93 87 Resp 17 16 B/P (MAP) 145/83 (103) 111/75 (103) Pulse Ox 98 O2 Delivery Room Air Room Air Capillary Refill : Less Than 3 Seconds Blood Pressure Mean: 103 Progress Note : Progress Note PLACED IN ISOLATION ROOM PPE WORN AT ALL TIMES COVID-19 TESTING PERFORMED. UNEVENTFUL ER STAY PT HAD NO COMPLAINTS OF DYSPNEA OR CHEST PAIN FOR REMAINDER OF ER STAY AT DISMISSAL, PT NOW STATES THAT SHE HAS BEEN PRESCRIBED LASIX 20 MG DAILY--RX FILLED ON 06/19/20--FOR THIS PROBLEM, AND SHE TAKES ONE OTC POTASSIUM PILL--UNKNOWN DOSE. ADVISED PT THAT SHE IS TO HOLD THESE MEDICATIONS AND WILL PRESCRIBE HIGHER DOSE LASIX FOR SWELLING IN LEGS, ALONG WITH PRESCRIPTION OF POTASSIUM ECG Initial ECG Impression Date: Jul 15, 2020 Initial ECG Impression Time: 22:23 Initial ECG Rate: 88 Initial ECG Rhythm: Normal Sinus Initial ECG Impression: Nonspecific Changes Diagnostic Imaging Comments CXR--NO ACUTE PROCESS, PENDING RADIOLOGIST REVIEW CT CHEST ANGIOGRAM--NO P.E. OR OTHER ACUTE ABNORMALITY. PER [facility] VIA FAX AT [phone] Reviewed: Reviewed by Me Departure Impression Primary Impression: Dependent edema Disposition: 01 HOME, SELF-CARE Condition: Improved Departure-Patient Inst. Referrals: ANABEL TAGN DO (PCP/Family) Patient Instructions: Dependent Edema (DC) Add. Discharge Instructions: HOLD YOUR CURRENT DOSE OF LASIX/FUROSEMIDE. WILL BE REPLACING IT WITH A DIFFERENT DOSE DO NOT TAKE ADDITIONAL POTASSIUM, TAKE PRESCRIPTION POTASSIUM ONLY. CONTINUE YOUR OTHER MEDICATIONS PRESCRIBED FOLLOW UP WITH YOUR DR THIS WEEK FOR FURTHER CARE, RETURN TO ER IF WORSE All discharge instructions reviewed with patient and/or family. Voiced understanding. Scripts Potassium Chloride (Potassium Chloride) 20 Meq Tab.er.prt 20 MEQ PO DAILY, #15 TAB Prov: KAI DEUTSCH DO 07/16/20 Furosemide (Lasix) 40 Mg Tablet 40 MG PO DAILY, #15 TAB Prov: JUANITA DEUTSCHA K 07/16/20 KAI DEUTSCH DO Jul 16, 2020 01:11
[2020-07-16 01:13] VITALS: BP 111/75
--- NOTE | 2020-07-16 06:29 | Diagnostic Imaging Report ---
INDICATION: Dyspnea, edema COMPARISON: 04/01/2020 TECHNIQUE: Single radiograph of the chest dated 07/15/2020. FINDINGS: The cardiac silhouette is at upper limits of normal in size, though stable. No significant pulmonary vascular congestion. The lungs appear clear, improved since the prior examination. No significant pleural effusion. No pneumothorax. No acute osseous abnormality. IMPRESSION: No acute cardiopulmonary abnormality. Dictated by: Dictated on workstation # [id number]
--- NOTE | 2020-07-16 08:55 | Diagnostic Imaging Report ---
PROCEDURE: CT angiography of the chest with contrast. TECHNIQUE: Multiple contiguous axial images were obtained through the chest after uneventful bolus administration of intravenous contrast. 3D reconstructed CTA MIP acquisitions were also performed. Auto Exposure Controls were utilized during the CT exam to meet ALARA standards for radiation dose reduction. INDICATION: Dyspnea, edema, pulmonary embolism. COMPARISON: 04/01/2020 and radiograph dated 07/15/2020 FINDINGS: No significant adenopathy within chest. No aneurysmal dilatation of thoracic aorta. The heart is within normal limits in size. No pericardial effusion. No pleural effusion. No pneumothorax. Calcified granuloma within the lingula. Minimal patchy groundglass opacities are noted within the lungs bilaterally, particularly the left lower lobe inferiorly. These have improved since the prior examination. Evaluation of the pulmonary arteries is significantly limited secondary to contrast bolus timing and patient body habitus. The Hounsfield units within the main pulmonary artery is less than 150. No saddle pulmonary embolus. Postsurgical changes of gastric bypass. Visualized upper abdomen is otherwise unremarkable. Scattered osseous degenerative changes without acute osseous abnormality. IMPRESSION: No large central pulmonary embolus, though evaluation for pulmonary emboli is significantly limited secondary to contrast bolus time to patient body habitus. The previously noted segmental and subsegmental pulmonary emboli are not optimally evaluated. If there remains high clinical concern, further evaluation with repeat examination versus nuclear medicine ventilation/perfusion scan could be considered. Improved though minimal persisting patchy groundglass opacities. This most likely relates to improving infectious infiltrate such as Covid-19. Report was faxed and called, [facility] ER, Dr. Gonzalez by roseann at 8:53am as there is discrepancy between the preliminary report in the final report.. ROLO Armstrong, was also notified. Dictated by: Dictated on workstation # [id number]
== END 2020-07-16 01:16 | disposition home or self-care (01) ==
LOC: EDUNIT# 21:55 → ER 21:57
DX: R60.0 Localized edema (principal); I10 Essential (primary) hypertension; E66.01 Morbid (severe) obesity due to excess calories; Z68.43 Body mass index [BMI] 50.0-59.9, adult; Z88.1 Allergy status to other antibiotic agents; Z86.711 Personal history of pulmonary embolism; Z20.822 Contact with and (suspected) exposure to COVID-19; Z79.01 Long term (current) use of anticoagulants
CPT/HCPCS: 71045; 71275; 80053; 82550; 82553; 83605; 83735; 83874; 83880; 84145; 84484; 84703; 85025; 85610; 85652; 85730; 86141; 87040; 87804; 93005; 93041; 99284; U0002; 36415; 87635

== ENCOUNTER → 2021-05-26 | Outpatient (CLI) | payer BC ==
[~2021-05-26] MED LIST changes: +CHOL10004 PO; -CHOL100045 PO; +CYCL10TA25 PO; -CYCL10TA9 PO; -DOXY100C2 PO; +DOXY100C5 PO; +FURO-124 PO; +POTA-179 PO; -POTA99TA21 PO; +POTA99TA26 PO
--- NOTE | 2021-05-26 13:18 | Diagnostic Imaging Report ---
HISTORY: Dyspnea, history of pulmonary embolus, history of Covid. COMPARISON: 07/15/2020 TECHNIQUE: 2 views of the chest. FINDINGS: Lung volumes are normal. No consolidation is seen. There is no pleural effusion or pneumothorax. The cardiac silhouette is normal in size. IMPRESSION: 1. No acute pulmonary abnormality. Dictated by: Dictated on workstation # [id number]
== END ==
LOC: RAD 11:13
PROVIDERS: ATTEND Nurse Practitioner Family
DX: I26.99 Other pulmonary embolism without acute cor pulmonale (principal); Z86.16 Personal history of COVID-19
CPT/HCPCS: 71046

== ENCOUNTER → 2021-06-27 | Outpatient (CLI) | payer BC ==
[~2021-06-27] MED LIST changes: -FLUC150T2 PO; +FLUC150T41 PO
--- NOTE | 2021-06-27 13:01 | Diagnostic Imaging Report ---
PROCEDURE: US Thyroid. TECHNIQUE: Multiple real-time grayscale images were obtained of the thyroid in various projections. INDICATION: Thyroid nodule, followup. Correlation is made with prior thyroid ultrasound from 06/17/2017. Right lobe of thyroid measures 5.0 x 2.0 x 1.6 cm and left lobe measures 3.8 x 1.0 x 1.6 cm. Isthmus is 3 mm in thickness. Nodule upper pole right lobe of thyroid measures 1.2 x 0.7 x 0.7 cm, compared with 0.9 x 0.8 x 0.6 cm. There is a tiny cystic nodule in the lower pole of the right lobe approximately 4 mm in size. Left lobe shows homogeneous echotexture and is without discrete mass. IMPRESSION: Slight increase in size over three-year interval in right upper pole thyroid nodule. Followup in one year would be recommended to confirm stability. Dictated by: Dictated on workstation # [id number]
== END ==
LOC: RAD 13:00
PROVIDERS: ATTEND Nurse Practitioner Family
DX: E04.1 Nontoxic single thyroid nodule (principal)
CPT/HCPCS: 76536

== ENCOUNTER → 2021-07-04 | Outpatient (CLI) | payer BC ==
[~2021-07-04] MED LIST changes: +CATHETER FLUSH 10 ML SYR IV PRN; +HOLD METFORMIN - RECEIVED CONTRAST 20 ML VIAL IV SCH; +IOHEXOL 350 MG/ML 100 ML (OMNIPAQUE 350) VIAL IV ONE; +NS 100 ML (IVPB) BAG IV ONE
--- NOTE | 2021-07-04 12:41 | Diagnostic Imaging Report ---
PROCEDURE: CT neck soft tissue with contrast. TECHNIQUE: Multiple contiguous axial images were obtained through the neck after the administration of contrast. Auto Exposure Controls were utilized during the CT exam to meet ALARA standards for radiation dose reduction. INDICATION: Thyromegaly. Abnormal labs. Posterior nasopharynx and oropharynx are unremarkable. Parapharyngeal fat planes are preserved. Epiglottis and larynx are unremarkable. No discrete thyroid mass is identified. Bilateral submandibular and parotid glands appear to be symmetric. No supraclavicular or posterior cervical lymphadenopathy is seen. There is mildly prominent left level 2A lymph node measuring 1.3 x 1.4 cm. There are no fluid collections identified. Visualized intracranial structures are unremarkable. IMPRESSION: Essentially unremarkable CT soft tissue neck study with contrast. Dictated by: Dictated on workstation # [id number]
== END ==
LOC: RAD 09:15
PROVIDERS: ATTEND Nurse Practitioner Family
DX: E01.0 Iodine-deficiency related diffuse (endemic) goiter (principal)
CPT/HCPCS: 70491

== ENCOUNTER → 2021-10-14 | Outpatient (CLI) | payer BC ==
[~2021-10-14] MED LIST changes: -CATHETER FLUSH 10 ML SYR IV PRN; -HOLD METFORMIN - RECEIVED CONTRAST 20 ML VIAL IV SCH; -IOHEXOL 350 MG/ML 100 ML (OMNIPAQUE 350) VIAL IV ONE; -NS 100 ML (IVPB) BAG IV ONE
--- NOTE | 2021-10-14 13:25 | Diagnostic Imaging Report ---
PROCEDURE: US left lower extremity venous. TECHNIQUE: Multiple real-time grayscale images were obtained over the left lower extremity in various projections. Additional duplex Doppler and color Doppler images were also obtained. INDICATION: Fall one week ago with left lower extremity edema. FINDINGS: There is no evidence of left lower extremity DVT. Left lower extremity deep venous system shows normal compressibility with normal response to augmentation and Valsalva. No fluid collection or mass is detected. IMPRESSION: No evidence of left lower extremity DVT. Dictated by: Dictated on workstation # [id number]
== END ==
LOC: RAD 12:20
PROVIDERS: ATTEND Nurse Practitioner Family
DX: R60.0 Localized edema (principal); M25.462 Effusion, left knee; M79.662 Pain in left lower leg

== ENCOUNTER → 2021-10-27 | Outpatient (CLI) | payer BC ==
--- NOTE | 2021-10-27 12:29 | Diagnostic Imaging Report ---
INDICATION: LEFT CALF PAIN, POST FALL TECHNIQUE: Multiple real-time grayscale images were obtained over the left lower extremity in various projections, bilaterally. Additional duplex Doppler and color Doppler images were also obtained. CORRELATION STUDY: None FINDINGS: Color and grayscale sonographic images demonstrate no intraluminal defect within the visualized portion of the common femoral, superficial femoral and/or popliteal veins to suggest thrombus formation. These vessels demonstrate normal response to compression and augmentation. No soft tissue fluid collection. IMPRESSION: 1. Negative for deep venous thrombosis of the left leg. Dictated by: Dictated on workstation # [id number]
[2021-10-27 12:34] LABS: BASOPHILS % (AUTO) 1 % (0-10); EOSINOPHILS # (AUTO) 0.1 10^3/uL (0.0-0.3); EOSINOPHILS % (AUTO) 1 % (0-10); HEMATOCRIT 39 % (35-52); HEMOGLOBIN 12.1 g/dL (11.5-16.0); LYMPHOCYTES # (AUTO) 1.8 10^3/uL (1.0-4.0); LYMPHOCYTES % (AUTO) 24 % (12-44); MEAN CORPUSCULAR HEMOGLOBIN 26 pg (25-34); MEAN CORPUSCULAR HGB CONC 31 g/dL (32-36); MEAN CORPUSCULAR VOLUME 84 fL (80-99); MEAN PLATELET VOLUME 9.5 fL (9.0-12.2); MONOCYTES # (AUTO) 0.4 10^3/uL (0.0-1.0); MONOCYTES % (AUTO) 6 % (0-12); NEUTROPHILS # (AUTO) 5.4 10^3/uL (1.8-7.8); NEUTROPHILS % (AUTO) 69 % (42-75); PLATELET COUNT 385 10^3/uL (130-400); WHITE BLOOD COUNT 7.8 10^3/uL (4.3-11.0)
[2021-10-27 12:43] LABS: ALBUMIN 3.6 GM/DL (3.2-4.5)
[2021-10-27 12:44] LABS: POTASSIUM 4.1 MMOL/L (3.6-5.0)
[2021-10-27 12:45] LABS: CALCIUM 9.1 MG/DL (8.5-10.1)
[2021-10-27 12:46] LABS: TOTAL PROTEIN 7.2 GM/DL (6.4-8.2)
[2021-10-27 12:48] LABS: BILIRUBIN,TOTAL 0.5 MG/DL (0.1-1.0)
[2021-10-27 12:50] LABS: CREATININE SERUM 0.7 MG/DL (0.60-1.30)
[2021-10-27 12:55] LABS: ERYTHROCYTE SEDIMENTATION RATE 42 MM/HR (0-30)
== END ==
LOC: RAD 11:20
PROVIDERS: ATTEND Internal Medicine
DX: L03.116 Cellulitis of left lower limb (principal); I26.99 Other pulmonary embolism without acute cor pulmonale; Z91.81 History of falling
CPT/HCPCS: 36415; 80053; 85025; 85379; 85652